=== PATIENT | male | born 1970 | race African-American/Black ===

== ENCOUNTER 2017-05-15 15:21 | Inpatient (IN) | payer OTHER ==
[2017-05-14 14:21] VITALS: BMI 48.0
[2017-05-15] MEDS ORDERED: BUPIVACAINE HCL/PF 0.5% (5MG/ML) 10 ML VIAL ONE (15:31)
[2017-05-15] MEDS ORDERED: DEXAMETHASONE SOD PHOSPHATE/PF 10 MG/ML SDV ONE (15:39)
[2017-05-15] MEDS ORDERED: BUPIVACAINE HCL/PF 0.25% (2.5MG/ML) 10 ML VIAL ONE (15:40)
[2017-05-15] MEDS ORDERED: MIDAZOLAM HCL 2 MG/2 ML SINGLE DOSE VIAL ONE ×3 (15:41→16:15)
[2017-05-15] MEDS ORDERED: PROPOFOL 20 ML ONE ×2 (16:15→17:46)
[2017-05-15] MEDS ORDERED: fentaNYL CITRATE 250 MCG/5 ML VIAL ONE (16:15)
[2017-05-15] MEDS ORDERED: ePHEDrine SULFATE 50 MG/1 ML AMPULE ONE (16:15)
[2017-05-15] MEDS ORDERED: ACETAMINOPHEN INJECTION 100 ML IVPB ONE (16:18)
[2017-05-15] MEDS ORDERED: DESFLURANE GAS 240 ML BOTTLE IH ONE (16:21)
[2017-05-15] MEDS ORDERED: GLYCOPYRROLATE 0.2 MG/1 ML VIAL ONE ×2 (16:43→19:48)
[2017-05-15] MEDS ORDERED: ceFAZolin SODIUM 1 GM VIAL IVPB ONE (18:00)
[2017-05-15] MEDS ORDERED: BUPIVACAINE HCL/PF 0.5% (5MG/ML) 10 ML VIAL IJ ONE ×2 (18:39→19:34)
[2017-05-15] MEDS ORDERED: NEOSTIGMINE METHYLSULFATE 0.5 MG/ML - 10 ML MDV ONE (19:33)
[2017-05-15] MEDS ORDERED: HYDROmorphone HCL CARPU-JECT 1 MG/1 ML DISP.SYRIN IVPB PRN (19:50)
[2017-05-15] MEDS ORDERED: ONDANSETRON 4 MG/2 ML VIAL IVPUSH PRN ×2 (19:50→20:24)
--- NOTE | 2017-05-15 19:59 | OP ---
Operative Note - Note: Operative Date: 05/15/17 Pre-Operative Diagnosis: Morbid Obesity. Diabetes Mellitus. Hypertension Operation: Laparoscopic Vertical Sleeve Gastrectomy. Wedge Biopsy of Left Lobe of Liver. Diagnostic Laparoscopy Findings: Greater curve sleeve gastrectomy performed with #[address] Wedge biopsy performed on enlarged left lobe of liver. Post-Operative Diagnosis: Same as Pre-op (Hepatomegaly) Surgeon: Ced Finney Brand Representative: Mike Underwood Anesthesia: General Specimens Removed: Greater curve of stomach. Wedge biopsy of left charlotte of liver Estimated Blood Loss (mls): 50 Operative Report Dictated: Yes
[2017-05-15] MEDS ORDERED: SODIUM CHLORIDE 1,000 ML IV SCH (20:00)
[2017-05-15] MEDS ORDERED: PROMETHAZINE HCL 25 MG/1 ML VIAL IVPUSH PRN (20:24)
[2017-05-15] MEDS ORDERED: LACTATED RINGERS SOLUTION 1,000 ML IV SCH (20:30)
[2017-05-15] MEDS ORDERED: MEPERIDINE HCL CARPU-JECT 25 MG/1 ML DISP.SYRIN ONE (20:32)
[2017-05-15] MEDS: METOCLOPRAMIDE HCL INJECTION 10 MG/2 ML VIAL IVPUSH SCH (21:00)
[2017-05-15] MEDS ORDERED: FAMOTIDINE 20 MG/50 ML IVPB 20 MG/50 ML MG IVPB ONE (21:01)
[2017-05-15] MEDS ORDERED: HYDROmorphone HCL CARPU-JECT 4 MG/1 ML DISP.SYRIN ONE (21:01)
[2017-05-15] MEDS ORDERED: ENOXAPARIN NA (PORCINE) 40 MG/0.4 ML DISP.SYRIN SQ ONE (21:01)
[2017-05-15] MEDS ORDERED: METOCLOPRAMIDE HCL INJECTION 10 MG/2 ML VIAL ONE (21:01)
[2017-05-15] MEDS: ENOXAPARIN NA (PORCINE) 40 MG/0.4 ML DISP.SYRIN SQ SCH (21:15)
[2017-05-15 21:19] LABS: HEMOGLOBIN 13.3 GM/dL (11.7-16.9); MCH 25.4 pg (25.7-33.7); MCHC 32.3 g/dl (32.0-35.9); MEAN CELL VOLUME 78.7 fl (80-96); MEAN PLT VOLUME 8.2 fl (7.5-11.1); PLATELET COUNT 257 K/MM3 (134-434); RBC 5.21 M/mm3 (4.00-5.60); RDW 17.2 % (11.9-15.9); WHITE BLOOD COUNT 16.8 K/mm3 (4.0-10.0)
[2017-05-15] MEDS ORDERED: FAMOTIDINE 20 MG PREMIXED IVPB IVPB ONE (21:20)
[2017-05-15 21:51] LABS: ALBUMIN 3.9 g/dl (3.4-5.0); ANION GAP 5 (8-16); BILIRUBIN,TOTAL 0.6 mg/dL (0.2-1.0); BLOOD UREA NITROGEN 18 mg/dL (7-18); CALCIUM 8.3 mg/dL (8.5-10.1); CHLORIDE 101 mmol/L (98-107); CO2 31 mmol/L (21-32); CREATININE 1.8 mg/dL (0.7-1.3); GLUCOSE,RANDOM 143 mg/dL (74-106); POTASSIUM 3.9 mmol/L (3.5-5.1); SGOT/AST 57 U/L (15-37); SODIUM 137 mmol/L (136-145); TOT PROT 7.3 g/dl (6.4-8.2)
[2017-05-15 21:53] LABS: ALK PHOS 81 U/L (45-117); SGPT/ALT 81 U/L (12-78)
[2017-05-15] MEDS: FAMOTIDINE 20 MG/50 ML IVPB 20 MG/50 ML MG IVPB SCH (22:43)
--- NOTE | 2017-05-15 23:20 | HP ---
DATE OF ADMISSION: 05/15/2017 CHIEF COMPLAINT: Morbid obesity. HISTORY OF PRESENT ILLNESS: Mr. Moore is a 47-year-old gentleman with a history of morbid obesity for many years despite multiple attempts at dietary weight loss. Because of his obesity, he has significant history of hypertension and diabetes, and is admitted for elective laparoscopic sleeve gastrectomy surgery. PAST MEDICAL HISTORY: Significant for diabetes mellitus and hypertension. MEDICATION: Include amlodipine, Vasotec, hydrochlorothiazide, and metformin. REVIEW OF SYSTEMS: Neurologic: Within normal limits. Cardiovascular: Within normal limits. Respiratory: Within normal limits. Gastrointestinal: Within normal limits. Musculoskeletal: Within normal limits. PHYSICAL EXAMINATION: General: Overweight gentleman, awake and alert, in no acute distress. HEENT: No masses noted. Lungs: Clear bilaterally. Heart: Regular sinus rhythm. Abdomen: Very obese, soft, nontender on palpation. Extremities: No swelling noted of lower extremities. IMPRESSION: Morbid obesity. PLAN: Operating room for laparoscopic vertical sleeve gastrectomy. Sudeep [id number]
[2017-05-16] MEDS: METOCLOPRAMIDE HCL INJECTION 10 MG/2 ML VIAL IVPUSH SCH ×3 (02:22→14:52)
[2017-05-16] MEDS: HYDROmorphone HCL CARPU-JECT 4 MG/1 ML DISP.SYRIN IVPB PRN ×2 (06:33→14:08)
--- NOTE | 2017-05-16 07:39 | OP ---
DATE OF OPERATION: 05/15/2017 PREOPERATIVE DIAGNOSIS: 1. Morbid obesity. 2. Diabetes mellitus. 3. Hypertension. POSTOPERATIVE DIAGNOSIS: 1. Morbid obesity. 2. Diabetes mellitus. 3. Hypertension. 4. Hepatomegaly. PROCEDURE PERFORMED: 1. Laparoscopic vertical sleeve gastrectomy. 2. Wedge biopsy of the left lobe of the liver. 3. Diagnostic laparoscopy. OPERATING SURGEON: Hal Finney MD SAUSAGE WRAPPER: Mike Underwood MD ANESTHESIA: General. OPERATIVE PROCEDURE: The patient was brought into the operating room, placed on the OR table in supine position. All precautions were taken initially including padding for the back and the feet, and Venodyne boots were placed on both lower extremities. At that point, the abdomen was prepped and draped in the usual manner. A Veress needle was placed in the left upper quadrant, and a pneumoperitoneum was established. A No. 12 bladeless trocar was placed in the left upper quadrant. Through that trocar, a laparoscopic camera was placed. Under direct vision, a No. 15 bladeless trocar was placed in the midline in a supraumbilical position, and then, a No. 5 bladeless trocar in the right upper quadrant and a No. 5 bladeless trocar below the left costal margin. A Ariana Liver Retractor was then placed in the epigastrium to retract the left lobe of the liver. The patients left lobe was noted to be extremely enlarged and very heavy. It was decided that a biopsy of the liver would be performed. At that point, the LigaSure device was used to cut out a small portion on the undersurface of the left lobe of the liver. This piece of the liver was then removed and sent off the field to Pathology as a specimen. The parenchyma bleeding was controlled by the LigaSure completely, and no further hemostasis was necessary. At this point, Anesthesia placed the patient in 20-degree reverse Trendelenburg position. The pylorus was noted on the distal stomach, and from that point, 6 cm were measured proximally. Here, the operating surgeon lifted the stomach towards the anterior abdominal wall as the assistant producer surgeon retracted the gastrocolic ligament inferiorly. The LigaSure device was used to dissect the gastrocolic ligament and then the short gastric vessels off the greater curve of the stomach. This continued until the final short gastric vessel between the superior pole, spleen, and proximal fundus was divided. At this point, Anesthesia advanced the bougie, which was a No. [address] down to the distal antrum. With the bougie held along the lesser curve, a series of salomón was performed, the first two being black salomón, 6 cm in length along the bougie. This was followed by a series of purple-load salomón, also 6 cm in length along the bougie, until the final staple was applied in the left upper quadrant, and the greater curve was now completely detached from the lesser curve. It should be noted that prior to firing these salomón, both the anterior and posterior min were checked, that they were equal in the area of the esophagogastric junction, approximately 1 to 1.5 cm serosa remained on the anterior and posterior surface. At this point, the assistant producer surgeon, Dr. Underwood, stepped out of the operative field and performed an upper endoscopy. The details will be described in his procedure note, but essentially, it showed that there was no obstruction all the way down to the pylorus and no leaks were noted from the staple line. At this point, the resected greater curve was removed with a No. 15 trocar size and sent off the field as specimen to Pathology. Under direct vision, all trocars removed and the pneumoperitoneum was released. The No. 15 trocar site was closed with Endo Close device to prevent internal hernia event bleeding. All trocar sites then received 0.25% Marcaine, were closed with 4-0 Biosyn in subcuticular fashion. The No. 15 trocar site was closed with 3-0 Vicryl in subcutaneous fashion followed by 4-0 Biosyn in subcuticular fashion. Dressings were applied. Patient awoke from anesthesia and transferred out of the operating room to the recovery room in stable condition. ANESTHESIA: General. SURGEON: Hal Finney MD SAUSAGE WRAPPER: Mike Underwood MD EXPECTED BLOOD LOSS: 50 mL. Patient transferred to the recovery room in stable condition. HAL FINNEY M.D. [id number]
[2017-05-16 08:19] LABS: HEMATOCRIT 40.2 % (35.4-49); HEMOGLOBIN 12.8 GM/dL (11.7-16.9); MCH 24.8 pg (25.7-33.7); MCHC 31.8 g/dl (32.0-35.9); MEAN PLT VOLUME 8.3 fl (7.5-11.1); PLATELET COUNT 238 K/MM3 (134-434); RBC 5.16 M/mm3 (4.00-5.60); RDW 16.9 % (11.9-15.9); WHITE BLOOD COUNT 14.1 K/mm3 (4.0-10.0)
[2017-05-16 08:30] LABS: ALBUMIN 3.7 g/dl (3.4-5.0); ANION GAP 11 (8-16); BLOOD UREA NITROGEN 13 mg/dL (7-18); CALCIUM 8.8 mg/dL (8.5-10.1); CHLORIDE 101 mmol/L (98-107); CO2 27 mmol/L (21-32); CREATININE 1.2 mg/dL (0.7-1.3); GLUCOSE,RANDOM 127 mg/dL (74-106); POTASSIUM 4.1 mmol/L (3.5-5.1); SGOT/AST 79 U/L (15-37); SGPT/ALT 102 U/L (12-78); SODIUM 139 mmol/L (136-145)
[2017-05-16 08:32] LABS: ALK PHOS 79 U/L (45-117); BILIRUBIN,TOTAL 0.7 mg/dL (0.2-1.0); TOT PROT 7.6 g/dl (6.4-8.2)
[2017-05-16] MEDS: FAMOTIDINE 20 MG/50 ML IVPB 20 MG/50 ML MG IVPB SCH ×2 (09:31→09:32)
[2017-05-16] MEDS: ENOXAPARIN NA (PORCINE) 40 MG/0.4 ML DISP.SYRIN SQ SCH (09:32)
--- NOTE | 2017-05-16 09:51 | OP ---
Operative Note - Note: Operative Date: 05/16/17 Pre-Operative Diagnosis: Rule out leak/obstruction s/p vertical sleeve gastrectomy Operation: EGD/upper endoscopy Surgeon: Mike Underwood Anesthesia: General Specimens Removed: None Estimated Blood Loss (mls): 0 Operative Report Dictated: Yes
[2017-05-16] MEDS ORDERED: amLODIPine BESYLATE 10 MG TABLET (FP) PO SCH (10:00)
[2017-05-16] MEDS ORDERED: ENALAPRIL MALEATE 10 MG TABLET (FP) PO SCH (10:00)
--- NOTE | 2017-05-16 11:29 | OP ---
DATE OF OPERATION: 05/15/2017 SURGEON: Vicky Underwood MD PREOPERATIVE DIAGNOSIS: Rule out leak/obstruction after vertical sleeve gastrectomy by Dr. Ced Finney. POSTOPERATIVE DIAGNOSIS: No leak or obstruction. SPECIMEN: None. ESTIMATED BLOOD LOSS: None. ANESTHESIA: GET. REASON FOR PROCEDURE: This is a 47-year-old gentleman who is undergoing a laparoscopic vertical sleeve gastrectomy by Dr. Ced Finney. An upper endoscopy/EGD was requested to rule out leak or obstruction. The endoscope was inserted into the patient's mouth. Esophagus, GE junction, gastric pouch, and staple line were inspected. Hemostasis was noted. No leak or obstruction was noted. The stomach was suctioned and the endoscope fully removed. The remainder of the procedure was continued. VICKY UNDERWOOD M.D. [id number]
--- NOTE | 2017-05-16 14:02 | PN ---
Progress Note (short form) - Note Progress Note: Anesthesiology Post-op 47 y.o. male POD#1 s/p laparoscopic gastric sleeve resection under GA. Pt. c/o 7/10 pain this afternoon; he states that he felt okay for most of the day until now. He is receiving IV Dilaudid PRN with good relief. He does c/o nausea which is relieved with Zofran. Otherwise, VSS, no other complaints. Stable post-operative course. Continue management per primary team.
[2017-05-16] MEDS ORDERED: ACETAMINOPHEN 325 MG TABLET (FP) PO PRN (14:27)
[2017-05-16] MEDS ORDERED: oxyCODONE HCL 5 MG TABLET PO PRN (14:27)
[2017-05-16] MEDS ORDERED: SODIUM CHLORIDE 1,000 ML IV SCH (14:30)
--- NOTE | 2017-05-16 14:33 | PN ---
Progress Note (short form) - Note Progress Note: POD#1 Afebrile; VSS Pt doing well No N/V P/E- Abd- all incisions clean, dry Ext- no swelling or edema noted WBC-14.1 (decreased from 16.8) H/H-12.8/40.2 UGI- no leak, no obstruction P- Begin PO clear liquids- 2 oz po tid Encourage OOB, incentive spirometer Cont DVT prophylaxis
[2017-05-16 14:55] VITALS: BP 141/85; PULSE 77; TEMP 99.4
--- NOTE | 2017-05-19 17:48 | PATH ---
Surgical Pathology Report Patient Name: ANDER FRANK [facility]. Rec. #: [id number] /Age/Gender: 1970 (Age: 47) / M Account: [id number] Location: 4 W TELEMETRY U Taken: 05/15/2017 Received: 05/16/2017 Reported: 05/19/2017 Physicians: Ced Finney M.D. Specimen(s) Received A: GREATER CURVATURE STOMACH B: LIVER BIOPSY Clinical History Morbid obesity Final Diagnosis A. STOMACH, GREATER CURVATURE, LAPAROSCOPIC VERTICAL SLEEVE GASTRECTOMY: PORTION OF STOMACH WITH MILD CHRONIC GASTRITIS. IMMUNOHISTOCHEMICAL STAIN FOR H. PYLORI IS NEGATIVE. B. LIVER, BIOPSY: LIVER PARENCHYMA WITH MILD PATCHY STEATOSIS (< 15%). NO INCREASE IN IRON AND FIBROSIS ON PERFORMED SPECIAL STAINS (IRON AND TRICHROME). Electronically Signed Kari Pretty M.D. Gross Description A. Received in formalin, labeled "greater curvature of stomach," is a 146 gram, 17.0 x 4.0 x 2.8 cm. portion of stomach with a stapled margin of resection. The serosa is prescott-bernard with minimal attached fat. The mucosa is prescott-pink with normal folds. No mucosal masses are identified. Director Of Search Engine Marketing sections are submitted in one cassette. B. Received in formalin labeled "liver biopsy," is a 3.0 x 1.7 x 1.0 cm prescott, irregular portion of soft tissue, consistent with a liver biopsy. A inbound sales representative section is submitted in one cassette. 05/16/2017 saudi05/16/2017
== END 2017-05-16 15:27 | disposition home or self-care (01) | DRG 621 ==
LOC: JSAMEDAYSX 15:21 → J4W 05-16 00:46
PROVIDERS: ADMIT Surgery; ATTEND Surgery
PROC: 0DB64Z3 Excision of Stomach, Percutaneous Endoscopic Approach, Vertical (ICD-10-PCS; principal; 2017-05-15 17:45)
PROC: 0FB24ZX Excision of Left Lobe Liver, Percutaneous Endoscopic Approach, Diagnostic (ICD-10-PCS; 2017-05-15 17:45)
PROC: 0DJ08ZZ Inspection of Upper Intestinal Tract, Via Natural or Artificial Opening Endoscopic (ICD-10-PCS; 2017-05-15 17:45)
DX: E66.01 Morbid (severe) obesity due to excess calories (principal); Z68.42 Body mass index [BMI] 45.0-49.9, adult; I10 Essential (primary) hypertension; E11.9 Type 2 diabetes mellitus without complications; R16.0 Hepatomegaly, not elsewhere classified
CPT/HCPCS: 36415; 74241-TC-FY; 80053; 82962; 85027; 88307-TC; 94010

== ENCOUNTER 2017-06-19 13:30 | Inpatient (IN) | payer OTHER ==
[2017-06-19 13:38] VITALS: BMI 42.0
[2017-06-19] MEDS ORDERED: SODIUM CHLORIDE 1,000 ML IV STA (13:50)
--- NOTE | 2017-06-19 13:51 | PDOC ---
History of Present Illness <Bebo Lawson - Last Filed: 06/19/17 15:23> - History of Present Illness Initial Comments: 06/19/17 13:47 47 M with h/o HTN, recent gastric bypass surgery 5 weeks ago, presenting to ED with elevated BUN/Cr on outpt labs. Pt states that since his surgery 5 weeks ago , he has been trying to advance his diet. By week 4, he was able to tolerating small amounts of solid food. However, over the past week, he has found it difficult to even tolerate fluids. He reports dry heaving and having severe nausea with any PO intake. Pt denies F/C. Denies CP/SOB. Denies leg swelling. Pt states he still makes urine, last urinated this AM. Pt is on enalapril, amlodipine, and HCTZ for his HTN. He reports self-DC'ing all 3 of these meds 2 days ago as he started to get lightheaded when he took them. <Michael Nguyễn - Last Filed: 06/19/17 15:46> - General Chief Complaint: Revisit, Lab Variance Stated Complaint: LAB VARIANCE, NAUSEA, FEELS DEHYDRATED Time Seen by Provider: 06/19/17 13:33 Past History <Bebo Lawson - Last Filed: 06/19/17 15:23> - Past Medical History Anemia: No Asthma: No Cancer: No Cardiac Disorders: No CVA: No COPD: No Dementia: No Diabetes: No GI Disorders: No Disorders: No HTN: Yes Hypercholesterolemia: No Liver Disease: No Seizures: No Thyroid Disease: No - Surgical History Abdominal Surgery: Yes (GASTRIC SLEEVE) Orthopedic Surgery: Yes (fx left leg) - Suicide/Smoking/Psychosocial Hx Smoking History: Former smoker Have you smoked in the past 12 months: No Information on smoking cessation initiated: No Hx Alcohol Use: No Drug/Substance Use Hx: No Substance Use Type: Marijuana Hx Substance Use Treatment: No <Michael Nguyễn - Last Filed: 06/19/17 15:46> - Past Medical History Allergies/Adverse Reactions: Allergies Allergy/AdvReac Type Severity Reaction Status Date / Time No Known Allergies Allergy Verified 06/19/17 13:32 Home Medications: Ambulatory Orders Amlodipine Besylate 10 mg PO DAILY 05/14/17 Enalapril Maleate [Vasotec] 20 mg PO DAILY 05/14/17 Hydrochlorothiazide [Hctz -] 25 mg PO DAILY 05/14/17 Famotidine [Pepcid -] 20 mg PO BID #60 tablet 05/16/17 Metformin HCl mg PO DAILY 06/19/17 Review of Systems - Review of Systems Comments:: 06/19/17 13:49 "GENERAL/CONSTITUTIONAL: No fever or chills. No weakness. HEAD, EYES, EARS, NOSE AND THROAT: No change in vision. No ear pain or discharge. No sore throat. CARDIOVASCULAR: No chest pain or shortness of breath. RESPIRATORY: No cough, wheezing, or hemoptysis. GASTROINTESTINAL: No nausea, vomiting, diarrhea or constipation. GENITOURINARY: No dysuria, frequency, or change in urination. MUSCULOSKELETAL: No joint or muscle swelling or pain. No neck or back pain. SKIN: No rash NEUROLOGIC: No headache, vertigo, loss of consciousness, or change in strength/ sensation. ENDOCRINE: No increased thirst. No abnormal weight change. HEMATOLOGIC/LYMPHATIC: No anemia, easy bleeding, or history of blood clots. ALLERGIC/IMMUNOLOGIC: No hives or skin allergy. " <Michael Nguyễn - Last Filed: 06/19/17 15:46> *Physical Exam - Vital Signs Last Vital Signs Temp Pulse Resp BP Pulse Ox 98.8 F 70 16 101/71 98 06/19/17 13:30 06/19/17 15:03 06/19/17 15:03 06/19/17 15:03 06/19/17 15:03 <Bebo Lawson - Last Filed: 06/19/17 15:23> - Vital Signs Last Vital Signs Temp Pulse Resp BP Pulse Ox 98.8 F 75 18 93/58 99 06/19/17 13:30 06/19/17 13:30 06/19/17 13:30 06/19/17 13:30 06/19/17 13:30 - Physical Exam Comments: 06/19/17 13:49 "GENERAL: Awake, alert, and fully oriented, in no acute distress HEAD: No signs of trauma EYES: PERRLA, EOMI, sclera anicteric, conjunctiva clear ENT: Auricles normal inspection, hearing grossly normal, nares patent, oropharynx clear without exudates. Moist mucosa NECK: Nontender, no stepoffs, Normal ROM, supple, no lymphadenopathy, JVD, or masses LUNGS: Breath sounds equal, clear to auscultation bilaterally. No wheezes, and no crackles HEART: Regular rate and rhythm, normal S1 and S2, no murmurs, rubs or gallops ABDOMEN: Soft, nontender, normoactive bowel sounds. No guarding, no rebound. No masses EXTREMITIES: Normal range of motion, no edema. No clubbing or cyanosis. No cords, erythema, or tenderness NEUROLOGICAL: Cranial nerves II through XII intact. 5/5 strength and sensation in all extremities, Normal speech, normal gait, normal cerebellar function SKIN: Warm, Dry, normal turgor, no rashes or lesions noted. " <OuMichael - Last Filed: 06/19/17 15:46> Heart Score/ECG Review - ECG Impressions Comment:: 06/19/17 13:59 NSR, sub-mm ST elevations in V1-V6, I, aVL, TW inversions in III and aVF, sub- mm ST depression in aVR <Ou,Michael - Last Filed: 06/19/17 15:46> ED Treatment Course - LABORATORY CBC & Chemistry Diagram: 06/19/17 14:00 06/19/17 14:00 - ADDITIONAL ORDERS Additional order review: Laboratory Results 06/19/17 06/19/17 14:00 14:00 Sodium 132 L Potassium 4.7 Chloride 95 L Carbon Dioxide 25 Anion Gap 12 BUN 74 H Creatinine 6.9 H Creat Clearance w eGFR 8.66 Random Glucose 110 H Calcium 9.4 Phosphorus 4.3 Magnesium 2.6 H Total Bilirubin 1.0 AST 21 ALT 26 Alkaline Phosphatase 46 Total Protein 7.5 Albumin 4.6 06/19/17 14:00 RBC 5.16 MCV 78.2 L MCHC 33.7 RDW 16.2 H MPV 9.4 Neutrophils % 61.8 Lymphocytes % 25.0 Monocytes % 10.3 H Eosinophils % 1.4 Basophils % 1.5 - Medications Given in the ED: ED Medications Discontinued Medications Generic Name Dose Route Start Last Admin Trade Name Freq PRN Reason Stop Dose Admin Sodium Chloride 1,000 mls @ 1,000 mls/hr 06/19/17 13:50 06/19/17 14:08 Normal Saline - IV 06/19/17 14:49 1,000 mls/hr ASDIR STA Administration - Consult/PCP Time Called: 15:10 (Case discussed with Dr. Beasley) - Additional Consults Time Called: 15:15 Consult/PCP: Placed call to Dr. Alejandro of Nephrology at [phone] Reason/Comments: Awaiting call back from covering physician Dr. Biggs <Bebo Lawson - Last Filed: 06/19/17 15:23> - LABORATORY CBC & Chemistry Diagram: 06/19/17 14:00 06/19/17 14:00 - RADIOLOGY Radiology Studies Ordered: Category Date Time Status KIDNEY / RENAL US [US] Stat Ultrasound 06/19/17 13:46 Ordered <Michael Nguyễn - Last Filed: 06/19/17 15:46> Medical Decision Making - Medical Decision Making 06/19/17 13:49 47 M with elevated BUN/Cr on outpt labs. Possibly 2/2 severe dehydration from poor PO intake after recent gastric bypass surgery. Also consider medication- induced, as pt is on 3 anti-HTNs, including enalapril and HCTZ. - Labs, UA - Renal US - IVF 06/19/17 14:01 EKG obtained, showing sub-mm ST elevations in V1-V6, I, aVL, possibly suggesting pericarditis. Given pt's new renal failure, could be uremic pericarditis. However, pt without any chest pain. 06/19/17 15:11 Labs today show Cr 6.9. K is wnl Pt started on IVF, given 1L NS bolus, will continue maintenance fluids 06/19/17 15:[address] Biggs, who does not believe pt will need emergent HD. Pt admitted to Dr. Beasley. <Michael Nguyễn - Last Filed: 06/19/17 15:46> *DC/Admit/Observation/Transfer - Attestations Scribe Attestion: Documentation prepared by Bebo Lawson, acting as medical program specialist for Michael Nguyễn MD 06/19/17 15:19 <Bebo Lawson - Last Filed: 06/19/17 15:23> - Discharge Dispostion Admit: Yes - Attestations Physician Attestion: 06/19/17 15:46 I, Dr. Michael Nguyễn MD, attest that this document has been prepared under my direction and personally reviewed by me in its entirety. I further attest, that it accurately reflects all work, treatment, procedures and medical decision -making performed by me. <Michael Nguyễn - Last Filed: 06/19/17 15:46> Diagnosis at time of Disposition: ARF (acute renal failure) - Discharge Dispostion Condition at time of disposition: Stable - Referrals Referrals: Demetri Beasley MD [Primary Care Provider] - - Patient Instructions - Post Discharge Activity
[2017-06-19 14:10] LABS: BASO % 1.5 % (0-2.0); EOS % 1.4 % (0-4.5); HEMATOCRIT 40.4 % (35.4-49); HEMOGLOBIN 13.6 GM/dl (11.7-16.9); MCH 26.4 pg (25.7-33.7); MCHC 33.7 g/dl (32.0-35.9); MEAN CELL VOLUME 78.2 fl (80-96); MEAN PLT VOLUME 9.4 fl (7.5-11.1); MONO % 10.3 % (3.8-10.2); NEUT % 61.8 % (42.8-82.8); PLATELET COUNT 160 K/MM3 (134-434); RBC 5.16 M/mm3 (4.00-5.60); RDW 16.2 % (11.9-15.9); WHITE BLOOD COUNT 7.1 K/mm3 (4.0-10.8)
[2017-06-19 14:38] LABS: ALBUMIN 4.6 g/dl (3.5-5.0); ALK PHOS 46 U/L (32-92); ANION GAP 12 (8-16); BLOOD UREA NITROGEN 74 mg/dl (7-18); CALCIUM 9.4 mg/dl (8.4-10.2); CHLORIDE 95 mmol/L (98-107); CO2 25 mmol/L (22-28); CREATININE 6.9 mg/dl (0.6-1.3); GLUCOSE,RANDOM 110 mg/dl (74-106); PHOSPHOROUS 4.3 mg/dl (2.5-4.6); POTASSIUM 4.7 mmol/L (3.5-5.1); SGOT/AST 21 U/L (10-42); SGPT/ALT 26 U/L (10-40); SODIUM 132 mmol/L (136-145); TOT PROT 7.5 g/dl (6.4-8.3)
[2017-06-19 16:22] LABS: PH,URINE 5.5 (4.5-8); URINE APPEARANCE Clear; URINE BILIRUBIN 1+ (NEGATIVE); URINE GLUCOSE (UA) Negative (NEGATIVE); URINE KETONE 1+ (NEGATIVE); URINE LEUK ESTERASE Negative (NEGATIVE); URINE NITRITE Negative (NEGATIVE); URINE PROTEIN Trace (NEGATIVE); URINE UROBILINOGEN 0.2 (0.2-1.0)
[2017-06-19 16:26] LABS: URINE BLOOD Trace-intact (NEGATIVE); URINE COLOR YELLOW
[2017-06-19 16:54] LABS: URINE WBC 0-3 (0-2)
[2017-06-19 16:55] LABS: EPI CELLS 0-3 /HPF; URINE HYALINE CAST 0-2 /lpf
[2017-06-19] MEDS: SODIUM CHLORIDE 1,000 ML IV SCH (17:00)
[2017-06-19] MEDS ORDERED: RANITIDINE HCL 150 MG TABLET (FP) PO SCH (17:15)
[2017-06-19] MEDS ORDERED: RANITIDINE HCL 150 MG TABLET (FP) ONE (17:20)
--- NOTE | 2017-06-19 18:02 | CONSULT ---
Consult - text type - Consultation Consultation Note: Renal Consult for MARIA GUADALUPE This is a 47 year old gentleman with PMhx of Hypertension, Obesity s/p gastric sleeve who presented with N/V and found to have MARIA GUADALUPE. Pt reports that intially after the procedure his diet was impoving as he was instructed but 2 weeks ago it started to get worse and he was not able to keep anything down. Pt denies any NSAID use, contrast exposure, abx use. He was on NURIA/Diuretic up until this past Friday. No flank pain, hematuria, sob, chest pain. PMHx: as above Allergies: NKDA Family Hx: NC Social hx: No T/A/D ROS: as per HPI Home Medications Medication Instructions Recorded Amlodipine Besylate 10 mg PO DAILY 05/14/17 Enalapril Maleate [Vasotec] 20 mg PO DAILY 05/14/17 Hydrochlorothiazide [Hctz -] 25 mg PO DAILY 05/14/17 Famotidine [Pepcid -] 20 mg PO BID #60 tablet 05/16/17 Metformin HCl mg PO DAILY 06/19/17 Vital Signs Temperature 98.8 F 06/19/17 13:30 Pulse Rate 70 06/19/17 15:03 Respiratory Rate 16 06/19/17 15:03 Blood Pressure 101/71 06/19/17 15:03 O2 Sat by Pulse Oximetry (%) 98 06/19/17 15:03 Intake & Output 06/16/17 06/17/17 06/18/17 06/19/17 23:59 23:59 23:59 23:59 Intake Total 1125 Output Total 400 Balance 725 Weight 132.903 kg NAD, awake and alert Dry MM, NO JVD, neck supple RRR, no M/R CTA No LE edema CBC, BMP 06/19/17 14:00 06/19/17 14:00 Current Medications Heparin Sodium (Porcine) (Heparin -) 5,000 unit SQ BID EVANS Sodium Chloride (Normal Saline -) 1,000 mls @ 125 mls/hr IV ASDIR [facility] Last Admin: 06/19/17 17:00 Dose: 125 mls/hr Insulin Aspart (Novolog Vial Sliding Scale -) 1 vial SQ ACHS [facility] PRN Reason: Protocol Ranitidine HCl (Zantac -) 150 mg PO BID [facility] Last Admin: 06/19/17 17:30 Dose: 150 mg 47 year old gentleman with PMhx of Hypertension, Obesity s/p gastric by-pass who presented with N/V and found to have MARIA GUADALUPE. #Acute Kidney Injury likely normotensive ATN in setting of ACEi vs. pre-renal injury from overt volume depletion #Nausea/Vomiting s/p Gastric Bypass #Hx of Hypertension now with hypotension #Hyponatremia Continue isotonic saline at 125cc per hour US of kidney showed no obsruction check FeNa, FeUrea, UPCR trend BUN/cr daily dose all meds for CrCl less then 15 hold NURIA/Diuretics/CCB for now surgery follow up Thank you Will follow Rocco Biggs DO
[2017-06-19 18:17] LABS: MAGNESIUM 2.5 mg/dL (1.8-2.4)
[2017-06-19] MEDS: HEPARIN NA (PORCINE) 5,000 UNITS/ML 1ML VIAL SQ SCH (22:46)
[2017-06-19] MEDS: INSULIN SLIDING SCALE (NOVOLOG) 1 VIAL SQ SCH (23:45)
[2017-06-20] MEDS: INSULIN SLIDING SCALE (NOVOLOG) 1 VIAL SQ SCH ×4 (06:36→21:59)
--- NOTE | 2017-06-20 08:55 | HP ---
Admitting History and Physical - Admission History of Present Illness: 47 year old gentleman with PMhx of Hypertension, Obesity s/p gastric sleeve who presented with N/V and found to have MARIA GUADALUPE. Pt reports that intially after the procedure his diet was improving as he was instructed but 2 weeks ago it started to get worse and he was not able to keep anything down. Pt denies any NSAID use, contrast exposure, abx use. He was on NURIA/Diuretic up until this past Friday. No flank pain, hematuria, sob, chest pain. pt states he drank around one cup of fluids all week - Past Medical History Cardiovascular: Yes: HTN, Hyperlipdemia Heme/Onc: Yes: Anemia Endocrine: Yes: Other (Obesity) - Smoking History Smoking history: Former smoker Have you smoked in the past 12 months: No - Alcohol/Substance Use Hx Alcohol Use: No Home Medications - Allergies Allergies/Adverse Reactions: Allergies Allergy/AdvReac Type Severity Reaction Status Date / Time No Known Allergies Allergy Verified 06/19/17 13:32 - Home Medications Home Medications: Ambulatory Orders Amlodipine Besylate 10 mg PO DAILY 05/14/17 Enalapril Maleate [Vasotec] 20 mg PO DAILY 05/14/17 Hydrochlorothiazide [Hctz -] 25 mg PO DAILY 05/14/17 Famotidine [Pepcid -] 20 mg PO BID #60 tablet 05/16/17 Metformin HCl mg PO DAILY 06/19/17 Review of Systems - Review of Systems Cardiovascular: reports: No Symptoms Respiratory: reports: No Symptoms Gastrointestinal: reports: Nausea. denies: Abdominal Pain Genitourinary: reports: No Symptoms Neurological: reports: Weakness Physical Examination Vital Signs: Vital Signs Temperature 98.5 F 06/20/17 05:55 Pulse Rate 87 06/20/17 05:55 Respiratory Rate 20 06/20/17 08:37 Blood Pressure 104/45 06/20/17 05:55 O2 Sat by Pulse Oximetry (%) 95 06/20/17 08:37 Cardiovascular: Yes: Regular Rate and Rhythm Respiratory: Yes: Regular, CTA Bilaterally Gastrointestinal: Yes: Normal Bowel Sounds, Soft. No: Tenderness Edema: No Labs: CBC, BMP 06/19/17 14:00 Problem List - Problems (1) Gastric bypass status for obesity Assessment/Plan: surgical follow up ugi series Code(s): Z98.84 - BARIATRIC SURGERY STATUS (2) ARF (acute renal failure) Assessment/Plan: maybe due to volume depletion poor oral intake ivf follow labs Code(s): N17.9 - ACUTE KIDNEY FAILURE, UNSPECIFIED (3) Nausea Assessment/Plan: ppi await gi series Code(s): R11.0 - NAUSEA (4) HTN (hypertension) Assessment/Plan: hold meds Code(s): I10 - ESSENTIAL (PRIMARY) HYPERTENSION
[2017-06-20 09:15] LABS: ALK PHOS 41 U/L (32-92); ANION GAP 8 (8-16); BILIRUBIN,TOTAL 1.1 mg/dl (0.2-1.0); BLOOD UREA NITROGEN 58 mg/dl (7-18); CALCIUM 9.1 mg/dl (8.4-10.2); CHLORIDE 102 mmol/L (98-107); CO2 26 mmol/L (22-28); CREATININE 4.1 mg/dl (0.6-1.3); GLUCOSE,RANDOM 95 mg/dl (74-106); MAGNESIUM 2.3 mg/dL (1.8-2.4); PHOSPHOROUS 4.2 mg/dl (2.5-4.6); POTASSIUM 4.6 mmol/L (3.5-5.1); SGOT/AST 20 U/L (10-42); SGPT/ALT 23 U/L (10-40); SODIUM 136 mmol/L (136-145); TOT PROT 6.8 g/dl (6.4-8.3)
[2017-06-20 09:20] LABS: BASO % 0.6 % (0-2.0); EOS % 2.1 % (0-4.5); HEMATOCRIT 36.8 % (35.4-49); HEMOGLOBIN 12.5 GM/dl (11.7-16.9); LYMPH % 33.9 % (8-40); MCH 26.5 pg (25.7-33.7); MCHC 33.9 g/dl (32.0-35.9); MEAN CELL VOLUME 78.2 fl (80-96); MEAN PLT VOLUME 9.4 fl (7.5-11.1); MONO % 9.4 % (3.8-10.2); PLATELET COUNT 144 K/MM3 (134-434); RDW 16.5 % (11.9-15.9); WHITE BLOOD COUNT 6.2 K/mm3 (4.0-10.8)
[2017-06-20] MEDS: HEPARIN NA (PORCINE) 5,000 UNITS/ML 1ML VIAL SQ SCH ×3 (09:58→21:59)
[2017-06-20] MEDS: PANTOPRAZOLE SODIUM 40 MG VIAL IVPUSH SCH ×2 (09:58→22:00)
[2017-06-20] MEDS ORDERED: RANITIDINE HCL 150 MG TABLET (FP) PO SCH (10:00)
--- NOTE | 2017-06-20 10:01 | EKG ---
Test Reason : Blood Pressure : / mmHG Vent. Rate : 072 BPM Atrial Rate : 072 BPM P-R Int : 166 ms QRS Dur : 090 ms QT Int : 338 ms P-R-T Axes : 048 -02 -20 degrees QTc Int : 370 ms NORMAL SINUS RHYTHM ST ELEVATION, CONSIDER EARLY REPOLARIZATION, PERICARDITIS, OR INJURY ABNORMAL ECG Confirmed by MARCELLA JAUREGUI MD ([id number]) on 06/20/2017 10:01:37 AM Referred By: VINCE HERNÁNDEZ Confirmed By:MARCELLA JAUREGUI MD
--- NOTE | 2017-06-20 10:33 | PN ---
Progress Note (short form) - Note Progress Note: Renal follow up for MARIA GUADALUPE Pts seen and examined at the bedside awake and alert had some Nausea this am, able to drink water last night making urine no dizziness, lightheadedness Vital Signs Temperature 98.5 F 06/20/17 05:55 Pulse Rate 87 06/20/17 05:55 Respiratory Rate 20 06/20/17 08:37 Blood Pressure 104/45 06/20/17 05:55 O2 Sat by Pulse Oximetry (%) 95 06/20/17 08:37 Intake & Output 06/17/17 06/18/17 06/19/17 06/20/17 23:59 23:59 23:59 23:59 Intake Total 1725 Output Total 400 Balance 1325 Weight 132.903 kg NAD, awake and alert Dry MM, NO JVD, neck supple RRR, no M/R CTA No LE edema CBC, BMP 06/20/17 08:20 06/20/17 06:00 Current Medications Heparin Sodium (Porcine) (Heparin -) 5,000 unit SQ BID ON LICENSE OF [facility] Last Admin: 06/20/17 09:58 Dose: 5,000 unit Sodium Chloride (Normal Saline -) 1,000 mls @ 125 mls/hr IV ASDIR ON LICENSE OF [facility] Last Admin: 06/19/17 17:00 Dose: 125 mls/hr Insulin Aspart (Novolog Vial Sliding Scale -) 1 vial SQ ACHS ON LICENSE OF [facility] PRN Reason: Protocol Last Admin: 06/20/17 06:36 Dose: Not Given Pantoprazole Sodium (Protonix Iv) 40 mg IVPUSH BID ON LICENSE OF [facility] Last Admin: 06/20/17 09:58 Dose: 40 mg Ranitidine HCl (Zantac -) 150 mg PO BID ON LICENSE OF [facility] 47 year old gentleman with PMhx of Hypertension, Obesity s/p gastric by-pass who presented with N/V and found to have MARIA GUADALUPE. #Acute Kidney Injury likely normotensive ATN in setting of ACEi vs. pre-renal injury from overt volume depletion #Nausea/Vomiting s/p Gastric Bypass #Hx of Hypertension now with hypotension #Hyponatremia FeNa was 1.2% - indeterminate continue isotonic saline for now continue management of N/v as per primary/surgery hyponatremia now resolved trend BUN/Cr and electrolytes daily Dose all meds for CrCl less then 20 Rocco Biggs DO
[2017-06-20] MEDS ORDERED: ONDANSETRON 4 MG/2 ML VIAL IVPUSH PRN (11:41)
--- NOTE | 2017-06-20 17:25 | CONSULT ---
Consult - text type - Consultation Consultation Note: Asked to see this 47 yo gentleman 5 weeks S/P Sleeve Gastrectomy. Pt was doing well first 3 weeks after surgery, even tolerating ground turkey, gradually progressing diet as instructed. He states last 2 weeks have been difficult with increased N/V. Pt presented to ER yesterday with low BP (80/50) and evidence of renal dysfunction (BUN/CR-74/6.9) Pt hydrated overnight and tolerating clear liquid diet . BUN/Cr today is 58/4.1 Pt brought to Radiology this AM for Barium swallow. Pt states has frequent nausea in AM and he was supine when test was performed. Pt could not tolerate and vomited the contrast and the procedure was aborted. Pt tolerated soup broth with string beans today without any difficulty. Pt brought to Radiology at 5 PM and repeat Barium Swallow showed pt in upright position and tolerated well. Barium Swallow showed small amount of reflux, but most contrast passed through stomach into duodenum and proximal small bowel without difficulty in under 5 minutes. There was an area of body of stomach, just distal to fundus that was narrowed but it could represent an area not completely filled by contrast. PMHx- Htn; Obesity Meds- Vasotec, HCTZ, Amlodipine, Pepcid P/E-Gen- Awake, alert, ambulating (walked to Radiology) Abd- all incisions healing well I-Dehydration (resolving), Nausea, Vomiting Acute Renal Insufficiency (resolving) Rec- UGI- no obstruction noted Continue clear liquids tonight, advance to soft diet tomorrow if tolerating well Will add Reglan for improved gastric transit Renal function as per Renal, PMD
[2017-06-20] MEDS: SODIUM CHLORIDE 1,000 ML IV SCH (17:54)
[2017-06-20] MEDS: METOCLOPRAMIDE HCL INJECTION 10 MG/2 ML VIAL IVPUSH SCH (17:54)
[2017-06-21] MEDS: METOCLOPRAMIDE HCL INJECTION 10 MG/2 ML VIAL IVPUSH SCH ×4 (00:31→17:19)
[2017-06-21] MEDS: INSULIN SLIDING SCALE (NOVOLOG) 1 VIAL SQ SCH ×3 (06:46→17:18)
[2017-06-21] MEDS: HEPARIN NA (PORCINE) 5,000 UNITS/ML 1ML VIAL SQ SCH ×2 (09:36→09:43)
[2017-06-21] MEDS: PANTOPRAZOLE SODIUM 40 MG VIAL IVPUSH SCH (09:36)
[2017-06-21 10:49] LABS: ALK PHOS 41 U/L (32-92); ANION GAP 9 (8-16); BILIRUBIN,TOTAL 0.9 mg/dl (0.2-1.0); BLOOD UREA NITROGEN 37 mg/dl (7-18); CALCIUM 8.8 mg/dl (8.4-10.2); CHLORIDE 103 mmol/L (98-107); CO2 24 mmol/L (22-28); CREATININE 2.5 mg/dl (0.6-1.3); GLUCOSE,RANDOM 98 mg/dl (74-106); POTASSIUM 4.4 mmol/L (3.5-5.1); SGOT/AST 22 U/L (10-42); SGPT/ALT 23 U/L (10-40); SODIUM 136 mmol/L (136-145); TOT PROT 6.9 g/dl (6.4-8.3)
--- NOTE | 2017-06-21 13:50 | PN ---
Progress Note (short form) - Note Progress Note: Afebrile, BP-130/84; P-66-88 Pt doing better Tolerating PO soft diet well Tolerating apple sauce, soft vegetables, soft cheese, pasta Pt drinking well States Reglan has helped improve nausea BUN/CR-37/2.5 (decreased from 58/4.1) Discussed PO diet with patient Recommended to continue soft diet at home, with frequent small sips of water, juice, liquids P- Agree with D/C home Will return for F/U labs on Friday Pt to hold BP meds I will see pt in office on , 06/26/2017 to advance PO diet if doing well
[2017-06-21] MEDS ORDERED: SODIUM CHLORIDE 1,000 ML IV STA (13:53)
--- NOTE | 2017-06-21 17:05 | DS ---
Physical Examination Vital Signs: Vital Signs Temperature 98.5 F 06/21/17 14:00 Pulse Rate 63 06/21/17 14:00 Respiratory Rate 19 06/21/17 14:00 Blood Pressure 98/54 06/21/17 14:00 O2 Sat by Pulse Oximetry (%) 100 06/21/17 14:00 Labs: CBC, BMP 06/20/17 08:20 06/21/17 09:58 Discharge Summary Reason For Visit: ACUTE RENAL FAILURE Current Active Problems ARF (acute renal failure) (Acute) Gastric bypass status for obesity (Acute) HTN (hypertension) (Acute) Nausea (Acute) Condition: Stable - Instructions Referrals: Demetri Beasley MD [Primary Care Provider] - 06/23/17 Disposition: HOME - Home Medications Comprehensive Discharge Medication List: Ambulatory Orders Famotidine [Pepcid -] 20 mg PO BID #60 tablet 05/16/17 Metoclopramide HCl [Reglan -] 10 mg PO QID #28 tablet 06/21/17 Pantoprazole Sodium [Protonix -] 40 mg PO BID #14 tablet.ec 06/21/17
[2017-06-21 17:07] VITALS: BP 101/58; PULSE 66; TEMP 98.8
[2017-06-21] MEDS: SODIUM CHLORIDE 1,000 ML IV SCH (17:19)
--- NOTE | 2017-06-24 10:11 | EKG ---
Test Reason : Blood Pressure : / mmHG Vent. Rate : 064 BPM Atrial Rate : 064 BPM P-R Int : 180 ms QRS Dur : 094 ms QT Int : 344 ms P-R-T Axes : 043 -06 -05 degrees QTc Int : 354 ms NORMAL SINUS RHYTHM NORMAL ECG WHEN COMPARED WITH ECG OF 19-JUN-2017 13:55, NO SIGNIFICANT CHANGE WAS FOUND Confirmed by Mike Townsend MD ([id number]) on 06/24/2017 10:11:20 AM Referred By: Confirmed By:Mike Townsend MD
== END 2017-06-21 17:50 | disposition home or self-care (01) | DRG 683 ==
LOC: FER 13:30 → FM/S 17:24
PROVIDERS: ADMIT Family Medicine; ATTEND Family Medicine
DX: N17.9 Acute kidney failure, unspecified (principal); E87.1 Hypo-osmolality and hyponatremia; I10 Essential (primary) hypertension; Z87.891 Personal history of nicotine dependence; Z98.84 Bariatric surgery status; E66.9 Obesity, unspecified; Z68.26 Body mass index [BMI] 26.0-26.9, adult; E78.5 Hyperlipidemia, unspecified; D64.9 Anemia, unspecified; R11.2 Nausea with vomiting, unspecified; E86.0 Dehydration
CPT/HCPCS: 36415; 71045-TC-FY; 74019-TC-FY; 74230-TC-FY; 76775-TC; 80053; 81003; 81015; 82550; 82553; 82570; 82962; 83036; 83735; 84100; 84156; 84300; 84484; 84540; 85025; 93005; 93306-TC; 99284-25; J1644; J7030

== ENCOUNTER 2017-06-23 15:43 | Observation (INO) | payer OTHER ==
[2017-06-23 15:48] VITALS: BMI 41.3
[2017-06-23] MEDS ORDERED: FAMOTIDINE 20 MG/50 ML IVPB 20 MG/50 ML MG IVPB ONE ×2 (16:54→17:19)
[2017-06-23] MEDS ORDERED: MAG HYDROX/AL HYDROX/SIMETH 30 ML UNIT-DOSE CUP PO ONE (16:54)
[2017-06-23] MEDS ORDERED: SODIUM CHLORIDE 1,000 ML IV STA (16:54)
[2017-06-23] MEDS ORDERED: ONDANSETRON 4 MG/2 ML VIAL IVPB ONE (16:54)
[2017-06-23] MEDS ORDERED: ONDANSETRON 4 MG/2 ML VIAL ONE (17:19)
[2017-06-23] MEDS ORDERED: MAG HYDROX/AL HYDROX/SIMETH 30 ML UNIT-DOSE CUP ONE (17:19)
--- NOTE | 2017-06-23 17:24 | PDOC ---
History of Present Illness <Vaughn Bauer - Last Filed: 06/23/17 17:31> - History of Present Illness Initial Comments: 06/23/17 17:19 "The patient is a 47 year old male, with a significant past medical history of hypertension, recent gastric bypass surgery 5 weeks ago, morbid obesity, who presents to the emergency department with, nausea since yesterday upon waking up. Pt was just discharged from hospital after being admitted for MARIA GUADALUPE due to poor PO intake. During his hospitalization, he was advanced to solid foods but has over the past few days been unable to tolerate anything by mouth without vomiting. The patient states he has tried taking small sips of water but vomits that as well. The patient reports taking Metoclopramide for the nausea with minimal relief. He denies any recent fevers, chills, headache or dizziness. He denies any recent diarrhea or constipation. He denies any recent chest pain or shortness of breath. He denies any recent dysuria, frequency, urgency or hematuria. Allergies: NKA Past surgical history: Gastric bypass 5 weeks ago. Surgeon: Dr. Finney <Michael Nguyễn - Last Filed: 06/23/17 19:19> - General Chief Complaint: Nausea Stated Complaint: NAUSEA Time Seen by Provider: 06/23/17 15:50 Past History <Vaughn Bauer - Last Filed: 06/23/17 17:31> - Past Medical History Anemia: No Asthma: No Cancer: No Cardiac Disorders: No CVA: No COPD: No DVT: No Dementia: No Diabetes: No GI Disorders: No Disorders: No HTN: Yes Hypercholesterolemia: No Liver Disease: No Seizures: No Thyroid Disease: No - Surgical History Abdominal Surgery: Yes (GASTRIC SLEEVE) Orthopedic Surgery: Yes (fx left leg) - Suicide/Smoking/Psychosocial Hx Smoking History: Never smoked Have you smoked in the past 12 months: No Information on smoking cessation initiated: No Hx Alcohol Use: No Drug/Substance Use Hx: No Substance Use Type: None Hx Substance Use Treatment: No <Michael Nguyễn - Last Filed: 06/23/17 19:19> - Past Medical History Allergies/Adverse Reactions: Allergies Allergy/AdvReac Type Severity Reaction Status Date / Time No Known Allergies Allergy Verified 06/23/17 15:45 Home Medications: Ambulatory Orders Famotidine [Pepcid -] 20 mg PO BID #60 tablet 05/16/17 Metoclopramide HCl [Reglan -] 10 mg PO QID #28 tablet 06/21/17 Pantoprazole Sodium [Protonix -] 40 mg PO BID #14 tablet.ec 06/21/17 Review of Systems - Review of Systems Comments:: 06/23/17 17:23 " GENERAL/CONSTITUTIONAL: +Fatigue. +Weakness. No fever or chills. HEAD, EYES, EARS, NOSE AND THROAT: No change in vision. No ear pain or discharge. No sore throat. CARDIOVASCULAR: No chest pain or shortness of breath. RESPIRATORY: No cough, wheezing, or hemoptysis. GASTROINTESTINAL: +Nausea. +Vomiting. No diarrhea or constipation. GENITOURINARY: No dysuria, frequency, or change in urination. MUSCULOSKELETAL: No joint or muscle swelling or pain. No neck or back pain. SKIN: No rash NEUROLOGIC: No headache, vertigo, loss of consciousness, or change in strength/ sensation. ENDOCRINE: No increased thirst. No abnormal weight change. HEMATOLOGIC/LYMPHATIC: No anemia, easy bleeding, or history of blood clots. ALLERGIC/IMMUNOLOGIC: No hives or skin allergy. " <Michael Nguyễn - Last Filed: 06/23/17 19:19> *Physical Exam - Vital Signs Last Vital Signs Temp Pulse Resp BP Pulse Ox 99.4 F 73 18 118/76 100 06/23/17 15:44 06/23/17 15:44 06/23/17 15:44 06/23/17 15:44 06/23/17 15:44 <Vaughn Bauer - Last Filed: 06/23/17 17:31> - Vital Signs Last Vital Signs Temp Pulse Resp BP Pulse Ox 99.4 F 73 18 118/76 100 06/23/17 15:44 06/23/17 15:44 06/23/17 15:44 06/23/17 15:44 06/23/17 15:44 - Physical Exam Comments: 06/23/17 17:23 "GENERAL: Awake, alert, and fully oriented, in no acute distress HEAD: No signs of trauma EYES: PERRLA, EOMI, sclera anicteric, conjunctiva clear ENT: Auricles normal inspection, hearing grossly normal, nares patent, oropharynx clear without exudates. Moist mucosa NECK: Nontender, no stepoffs, Normal ROM, supple, no lymphadenopathy, JVD, or masses LUNGS: Breath sounds equal, clear to auscultation bilaterally. No wheezes, and no crackles HEART: Regular rate and rhythm, normal S1 and S2, no murmurs, rubs or gallops ABDOMEN: Soft, nontender, normoactive bowel sounds. No guarding, no rebound. No masses EXTREMITIES: Normal range of motion, no edema. No clubbing or cyanosis. No cords, erythema, or tenderness NEUROLOGICAL: Cranial nerves II through XII intact. 5/5 strength and sensation in all extremities, Normal speech, normal gait, normal cerebellar function SKIN: Warm, Dry, normal turgor, no rashes or lesions noted. " <Michael Nguyễn - Last Filed: 06/23/17 19:19> ED Treatment Course - LABORATORY CBC & Chemistry Diagram: 06/23/17 17:30 06/23/17 17:30 <Michael Nguyễn - Last Filed: 06/23/17 19:19> Medical Decision Making - Medical Decision Making 06/23/17 17:23 47 M with poor PO tolerance after gastric bypass. Recently admitted for MARIA GUADALUPE likely 2/2 dehydration from poor PO intake. Will check renal function today. Pt with benign abdomen, low suspicion for any acute infectious process or post-op complication. - Labs - IVF, zofran, pepcid, maalox - Dr. Finney at bedside to evaluate 06/23/17 19:14 Labs with improved Cr 2.1. Pt reassessed - still continues to feel nauseous. I spoke with Dr. Finney, who recommends pt be admitted to hospital for further evaluation of his PO intolerance. Pt admitted to hospitalist. <Michael Nguyễn - Last Filed: 06/23/17 19:19> *DC/Admit/Observation/Transfer - Attestations Scribe Attestion: 06/23/17 17:31 Documentation prepared by Vaughn Bauer, acting as medical care manager for Michael Nguyễn MD. <Vaughn Bauer - Last Filed: 06/23/17 17:31> - Discharge Dispostion Admit: Yes - Attestations Physician Attestion: 06/23/17 19:18 I, Dr. Michael Nguyễn MD, attest that this document has been prepared under my direction and personally reviewed by me in its entirety. I further attest, that it accurately reflects all work, treatment, procedures and medical decision -making performed by me. <Michael Nguyễn - Last Filed: 06/23/17 19:19> Diagnosis at time of Disposition: Nausea - Discharge Dispostion Condition at time of disposition: Fair
[2017-06-23 17:45] LABS: MCHC 33.6 g/dl (32.0-35.9)
[2017-06-23 17:51] LABS: EOS % 1.5 % (0-4.5); HEMATOCRIT 39.1 % (35.4-49); HEMOGLOBIN 13.1 GM/dl (11.7-16.9); LYMPH % 25.8 % (8-40); MCH 26.5 pg (25.7-33.7); MEAN CELL VOLUME 78.7 fl (80-96); MEAN PLT VOLUME 9.3 fl (7.5-11.1); MONO % 8.4 % (3.8-10.2); NEUT % 63.3 % (42.8-82.8); PLATELET COUNT 156 K/MM3 (134-434); RBC 4.97 M/mm3 (4.00-5.60); RDW 15.9 % (11.9-15.9); WHITE BLOOD COUNT 7.4 K/mm3 (4.0-10.8)
[2017-06-23 18:10] LABS: ALBUMIN 4.2 g/dl (3.5-5.0); ALK PHOS 46 U/L (32-92); ANION GAP 10 (8-16); BILIRUBIN,TOTAL 0.9 mg/dl (0.2-1.0); BLOOD UREA NITROGEN 23 mg/dl (7-18); CALCIUM 9.6 mg/dl (8.4-10.2); CHLORIDE 102 mmol/L (98-107); CO2 24 mmol/L (22-28); CREATININE 2.1 mg/dl (0.6-1.3); GLUCOSE,RANDOM 94 mg/dl (74-106); POTASSIUM 4.4 mmol/L (3.5-5.1); SGOT/AST 24 U/L (10-42); SGPT/ALT 22 U/L (10-40); SODIUM 136 mmol/L (136-145); TOT PROT 7.2 g/dl (6.4-8.3)
[2017-06-23] MEDS ORDERED: ONDANSETRON 4 MG/2 ML VIAL IVPUSH PRN (19:41)
[2017-06-23 19:43] LABS: LIPASE 185 U/L (73-393)
[2017-06-23] MEDS: DEXTROSE 5%-0.45% SALINE 1,000 ML IV SCH (20:12)
--- NOTE | 2017-06-23 21:22 | HP ---
Admitting History and Physical - Primary Care Physician PCP: Demetri Beasley - Admission Chief Complaint: Nausea, Vomiting, Metallic Taste in Mouth History of Present Illness: This is a 47 year old man with a PMH of HTN, Severe Obesity s/p Gastric Sleeve, recent admission 06/19-06/21 for MARIA GUADALUPE, Dehydration. Who presents to the ED with decreased PO intake, nausea and metallic taste x 2 days. Patient reports having recent bariatric surgery, and now has had increased nausea and vomiting since last Friday. He reports the vomiting subsided and he has been able to tolerate po liquids and yogurt. He expressed his concerns of possible dehydration and acute renal failure. He states he spoke with his Surgeon and was advised to come in for evaluation and an Endoscopy. Patient denies fever, chills, cough, NINO, dizziness, SOB, CP, AP, diarrhea, constipation, hematochezia, melena, dysuria History Source: Patient Limitations to Obtaining History: No Limitations - Past Medical History Cardiovascular: Yes: HTN, Hyperlipdemia Heme/Onc: Yes: Anemia Endocrine: Yes: Other (Obesity) - Past Surgical History Past Surgical History: Yes: Bariatric Surgery - Smoking History Smoking history: Never smoked Have you smoked in the past 12 months: No - Alcohol/Substance Use Hx Alcohol Use: No History of Substance Use: reports: None - Social History Usual Living Arrangement: Yes: Alone ADL: Independent Occupation: employed History of Recent Travel: No Home Medications - Allergies Allergies/Adverse Reactions: Allergies Allergy/AdvReac Type Severity Reaction Status Date / Time No Known Allergies Allergy Verified 06/23/17 15:45 - Home Medications Home Medications: Ambulatory Orders Famotidine [Pepcid -] 20 mg PO BID #60 tablet 05/16/17 Metoclopramide HCl [Reglan -] 10 mg PO QID #28 tablet 06/21/17 Pantoprazole Sodium [Protonix -] 40 mg PO BID #14 tablet.ec 06/21/17 Family Disease History - Family Disease History Family Disease History: Heart Disease: Mother (HTN) Review of Systems - Review of Systems Constitutional: reports: Loss of Appetite Eyes: reports: No Symptoms HENT: reports: Other (metallic taste in mouth) Neck: reports: No Symptoms Cardiovascular: reports: No Symptoms Respiratory: reports: No Symptoms Gastrointestinal: reports: Nausea, Vomiting Genitourinary: reports: No Symptoms Breasts: reports: No Symptoms Reported Musculoskeletal: reports: No Symptoms Integumentary: reports: No Symptoms Neurological: reports: No Symptoms Endocrine: reports: No Symptoms Hematology/Lymphatic: reports: No Symptoms Psychiatric: reports: No Symptoms Physical Examination Vital Signs: Vital Signs Temperature 99.4 F 06/23/17 15:44 Pulse Rate 73 06/23/17 15:44 Respiratory Rate 18 06/23/17 15:44 Blood Pressure 118/76 06/23/17 15:44 O2 Sat by Pulse Oximetry (%) 100 06/23/17 15:44 Constitutional: Yes: No Distress, Calm, Obese Eyes: Yes: WNL, Conjunctiva Clear, EOM Intact, PERRL HENT: Yes: WNL, Atraumatic, Normocephalic, Other (dry mucous membranes) Neck: Yes: WNL, Supple, Trachea Midline Cardiovascular: Yes: WNL, Regular Rate and Rhythm, S1, S2 Respiratory: Yes: WNL, Regular, CTA Bilaterally Gastrointestinal: Yes: Abdomen, Obese, Hypoactive Bowel Sounds, Other Renal/: Yes: WNL Breast(s): Yes: WNL Musculoskeletal: Yes: WNL Extremities: Yes: WNL Edema: No Peripheral Pulses WNL: Yes Wound/Incision: Yes: Clean/Dry Neurological: Yes: WNL, Alert, Oriented ...Motor Strength: WNL Psychiatric: Yes: WNL, Alert, Oriented Labs: CBC, BMP 06/23/17 17:30 06/23/17 17:30 Intake & Output 06/21/17 06/22/17 06/23/17 06/24/17 23:59 23:59 23:59 23:59 Intake Total 0 Balance 0 Weight 130.635 kg Current Medications Generic Name Dose Route Start Last Admin Trade Name Freq PRN Reason Stop Dose Admin Dextrose/Sodium Chloride 1,000 mls @ 83 mls/hr 06/23/17 19:45 06/23/17 20:12 D5-1/2ns - IV 83 mls/hr ASDIR EVANS Administration Ondansetron HCl 4 mg 06/23/17 19:41 Zofran Injection IVPUSH Q6H PRN NAUSEA Problem List - Problems (1) Nausea Code(s): R11.0 - NAUSEA (2) Acute kidney injury Code(s): N17.9 - ACUTE KIDNEY FAILURE, UNSPECIFIED (3) Gastric bypass status for obesity Code(s): Z98.84 - BARIATRIC SURGERY STATUS (4) HTN (hypertension) Code(s): I10 - ESSENTIAL (PRIMARY) HYPERTENSION (5) DVT prophylaxis Code(s): NHX1467 - Assessment/Plan This is a 47 y/o man with a PMH of HTN, HLD, Severe Obesity s/p Gastric Sleeve, recent admission 06/19-06/21 MARIA GUADALUPE, Dehydration. Placed in Observation for MARIA GUADALUPE, Intractable Nausea Plan: 1. Nephro: MARIA GUADALUPE - Likely secondary to Dehydration - Cr 2.1 (improved from 7-2.5 last admission) - Continue gentle IVF -Avoid nephrotoxin drugs -Repeat BMP in am - FU with Nephrology in outpatient 2. 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 Cardiology: Hypertension, HLD - Stable - Monitor BP - Continue home meds 4. Severe Obesity - s/p Gastric Sleeve 5. FEN - D51/2NS@83ml/hr - Replete lytes prn - NPO until cleared by GI 6. DVT ppx - OOB - SCDs - Consider AC if LOS > 48 Code Status: Full Code Dispo: Observation Visit type - Emergency Visit Emergency Visit: Yes ED Registration Date: 06/23/17 Care time: The patient presented to the Emergency Department on the above date and was hospitalized for further evaluation of their emergent condition. - New Patient This patient is new to me today: Yes Date on this admission: 06/23/17 - Critical Care Critical Care patient: No Hospitalist Screening - Colonoscopy Questionnaire Colonoscopy Questionnaire: Colonoscopy Questionnaire - Patient: 50 - 75 years old and never had a screening colonoscopy: No History of colon or rectal polyps, or CA: No History of IBD, Crohn's disease or UC: No History of abdominal radiation therapy as a child: No - Relative: 1 with colon or rectal CA, or polyps at age 60 or younger: No Colon or rectal CA diagnosed at age 45 or younger: No Multiple relatives with colon or rectal CA: No - Outcome: Screening Result: Negative Screen
--- NOTE | 2017-06-24 08:44 | PN ---
Physical Exam: SUBJECTIVE: Patient seen and examined, denies any abdominal pain, nausea, or vomiting. OBJECTIVE: Patient is a 47 y/o morbidly obese male, patient is s/p gastric sleeve, 05/23/17, htn, and MARIA GUADALUPE. Patient was admitted from the emergency department for emergent condition. Vital Signs Period Temp Pulse Resp BP Sys/Nath Pulse Ox Last 24 Hr 98.5 F-99.4 F 57-73 17-18 118-134/76-85 97-100 GENERAL: The patient is awake, alert, and fully oriented, in no acute distress. HEAD: Normal with no signs of trauma. EYES: PERRL, extraocular movements intact, sclera anicteric, conjunctiva clear. No ptosis. ENT: Ears normal, nares patent, oropharynx clear without exudates, moist mucous membranes. NECK: Trachea midline, full range of motion, supple. LUNGS: Breath sounds equal, clear to auscultation bilaterally, no wheezes, no crackles, no accessory muscle use. HEART: Regular rate and rhythm, S1, S2 without murmur, rub or gallop. ABDOMEN: Soft, surgical sites, well approximated, no erythema noted, nontender , nondistended, normoactive bowel sounds, no guarding, no rebound, no hepatosplenomegaly, no masses. EXTREMITIES: 2+ pulses, warm, well-perfused, no edema. NEUROLOGICAL: Cranial nerves II through XII grossly intact. Normal speech, gait not observed. PSYCH: Normal mood, normal affect. SKIN: Warm, dry, normal turgor, no rashes or lesions noted Laboratory Results - last 24 hr CBC WBC 5.4 K/mm3 (4.0-10.8) 06/24/17 08:00 RBC 4.66 M/mm3 (4.00-5.60) 06/24/17 08:00 Hgb 12.5 GM/dl (11.7-16.9) 06/24/17 08:00 Hct 36.7 % (35.4-49) 06/24/17 08:00 MCV 78.8 fl (80-96) L 06/24/17 08:00 MCH 26.9 pg (25.7-33.7) 06/24/17 08:00 MCHC 34.2 g/dl (32.0-35.9) 06/24/17 08:00 RDW 16.0 % (11.9-15.9) H 06/24/17 08:00 Plt Count 131 K/MM3 (134-434) L 06/24/17 08:00 MPV 9.0 fl (7.5-11.1) 06/24/17 08:00 Neutrophils % 59.4 % (42.8-82.8) 06/24/17 08:00 Lymphocytes % 27.7 % (8-40) 06/24/17 08:00 Monocytes % 9.9 % (3.8-10.2) 06/24/17 08:00 Eosinophils % 2.5 % (0-4.5) 06/24/17 08:00 Basophils % 0.5 % (0-2.0) 06/24/17 08:00 CMP Sodium 135 mmol/L (136-145) L 06/24/17 08:00 Potassium 3.9 mmol/L (3.5-5.1) 06/24/17 08:00 Chloride 104 mmol/L (98-107) 06/24/17 08:00 Carbon Dioxide 26 mmol/L (22-28) 06/24/17 08:00 Anion Gap 5 (8-16) L 06/24/17 08:00 BUN 19 mg/dl (7-18) H 06/24/17 08:00 Creatinine 2.0 mg/dl (0.6-1.3) H 06/24/17 08:00 Creat Clearance w eGFR 34.17 (>60) 06/23/17 17:30 Random Glucose 111 mg/dl (74-106) H 06/24/17 08:00 Calcium 8.7 mg/dl (8.4-10.2) 06/24/17 08:00 Magnesium 1.6 mg/dL (1.8-2.4) L D 06/24/17 08:00 Total Bilirubin 0.9 mg/dl (0.2-1.0) 06/23/17 17:30 AST 24 U/L (10-42) 06/23/17 17:30 ALT 22 U/L (10-40) 06/23/17 17:30 Alkaline Phosphatase 46 U/L (32-92) 06/23/17 17:30 Total Protein 7.2 g/dl (6.4-8.3) 06/23/17 17:30 Albumin 4.2 g/dl (3.5-5.0) 06/23/17 17:30 Lipase 185 U/L (73-393) 06/23/17 17:30 Active Medications Generic Name Dose Route Start Last Admin Trade Name Freq PRN Reason Stop Dose Admin Dextrose/Sodium Chloride 1,000 mls @ 83 mls/hr 06/23/17 19:45 06/23/17 20:12 D5-1/2ns - IV 83 mls/hr ASDIR EVANS Administration Ondansetron HCl 4 mg 06/23/17 19:41 Zofran Injection IVPUSH Q6H PRN NAUSEA IMAGING chest xray: no acute pathology barium swallow: no acute abnormality renal ultrasound: normal exam ASSESSMENT/PLAN: 1) GI nausea/vomiting - resolved, patient is s/p gastric sleeve, case discussed with Dr Finney and Dr Martinez, endo to be completed tomm in AM by Dr Martinez - soft diet, serial abdominal exams - Dr Finney and Dr Martinez, consulted and followed 2) nephrology MARIA GUADALUPE - repeat creatine 2.0, improved from 4.0 last admission, continue iv hydration - strict i/o and daily weights - pt will need outpatient nephrology follow up 3) cardiovascular hypertension - no home meds, b/p at goal 5. FEN - D51/2NS@83ml/hr - Replete lytes prn - soft diet, then NPO after mn 6. DVT ppx - OOB - SCDs - Consider AC if LOS > 48 Code Status: Full Code Dispo: Observation Visit type - Emergency Visit Emergency Visit: Yes ED Registration Date: 06/23/17 Care time: The patient presented to the Emergency Department on the above date and was hospitalized for further evaluation of their emergent condition. - New Patient This patient is new to me today: Yes Date on this admission: 06/24/17 - Critical Care Critical Care patient: No - Discharge Referral Referred to [facility] Med P.C.: No
[2017-06-24 08:57] LABS: ANION GAP 5 (8-16); BLOOD UREA NITROGEN 19 mg/dl (7-18); CALCIUM 8.7 mg/dl (8.4-10.2); CHLORIDE 104 mmol/L (98-107); CO2 26 mmol/L (22-28); GLUCOSE,RANDOM 111 mg/dl (74-106); MAGNESIUM 1.6 mg/dL (1.8-2.4); POTASSIUM 3.9 mmol/L (3.5-5.1); SODIUM 135 mmol/L (136-145)
[2017-06-24 09:02] LABS: BASO % 0.5 % (0-2.0); EOS % 2.5 % (0-4.5); HEMATOCRIT 36.7 % (35.4-49); HEMOGLOBIN 12.5 GM/dl (11.7-16.9); LYMPH % 27.7 % (8-40); MCH 26.9 pg (25.7-33.7); MCHC 34.2 g/dl (32.0-35.9); MEAN CELL VOLUME 78.8 fl (80-96); MONO % 9.9 % (3.8-10.2); NEUT % 59.4 % (42.8-82.8); PLATELET COUNT 131 K/MM3 (134-434); RBC 4.66 M/mm3 (4.00-5.60); WHITE BLOOD COUNT 5.4 K/mm3 (4.0-10.8)
[2017-06-24] MEDS ORDERED: MAGNESIUM SULFATE 2 GM in SODIUM CHLORIDE 100 ML IVPB ONE (10:09)
[2017-06-24] MEDS ORDERED: MAGNESIUM SULFATE IN WATER 2 GM/50 ML IVPB IVPB ONE (10:30)
[2017-06-24] MEDS ORDERED: ZOLPIDEM TARTRATE 5 MG TABLET PO PRN (13:58)
[2017-06-24] MEDS ORDERED: ACETAMINOPHEN 325 MG TABLET (FP) PO PRN (13:58)
[2017-06-24] MEDS: METOCLOPRAMIDE HCL 10 MG TABLET (FP) PO SCH ×3 (14:09→21:07)
[2017-06-24] MEDS: SUCRALFATE 1 GM/10 ML UNIT DOSE CUPS PO SCH ×3 (14:09→21:07)
--- NOTE | 2017-06-24 16:30 | CONSULT ---
Consult - text type - Consultation Consultation Note: Pt well known to me Pt 6 weeks S/P Sleeve Gastrectomy C/O vomiting 2 days ago, and arrived to ER yesterday Pt with renal dysfunction last week secondary to dehydration BUN/CR now 19/2.0 Pt states drinking today and ate mashed potatoes and a pear with no difficulty Pt denies nausea today Pt receiving Reglan with apparent improvement P- Upper endoscopy tomorrow to check status of Gastric Sleeve NPO after midnight Cont DVT prophylaxis
[2017-06-24] MEDS: PANTOPRAZOLE 40 MG TABLET (FP) PO SCH (21:06)
[2017-06-24] MEDS: DEXTROSE 5%-0.45% SALINE 1,000 ML IV SCH (21:07)
[2017-06-24] MEDS ORDERED: FAMOTIDINE 20 MG TABLET PO SCH (22:00)
[2017-06-25] MEDS ORDERED: PROPOFOL 20 ML ONE ×3 (07:00→10:12)
[2017-06-25] MEDS ORDERED: LIDOCAINE HCL/PF 2% SDV 5ML VIAL ONE (07:01)
[2017-06-25 08:24] LABS: ANION GAP 1 (8-16); BLOOD UREA NITROGEN 13 mg/dl (7-18); CALCIUM 8.5 mg/dl (8.4-10.2); CHLORIDE 108 mmol/L (98-107); CO2 25 mmol/L (22-28); CREATININE 1.8 mg/dl (0.6-1.3); GLUCOSE,RANDOM 108 mg/dl (74-106); PHOSPHOROUS 3.1 mg/dl (2.5-4.6); POTASSIUM 3.5 mmol/L (3.5-5.1); SODIUM 134 mmol/L (136-145)
[2017-06-25 08:28] LABS: BASO % 0.6 % (0-2.0); EOS % 2.1 % (0-4.5); HEMATOCRIT 36.2 % (35.4-49); HEMOGLOBIN 12.3 GM/dl (11.7-16.9); LYMPH % 24.2 % (8-40); MCH 26.8 pg (25.7-33.7); MCHC 34.1 g/dl (32.0-35.9); MEAN CELL VOLUME 78.7 fl (80-96); MEAN PLT VOLUME 8.9 fl (7.5-11.1); MONO % 9.9 % (3.8-10.2); NEUT % 63.2 % (42.8-82.8); PLATELET COUNT 129 K/MM3 (134-434); WHITE BLOOD COUNT 6.3 K/mm3 (4.0-10.8)
[2017-06-25] MEDS: METOCLOPRAMIDE HCL 10 MG TABLET (FP) PO SCH ×4 (09:22→22:14)
[2017-06-25] MEDS: SUCRALFATE 1 GM/10 ML UNIT DOSE CUPS PO SCH ×4 (09:22→22:14)
[2017-06-25] MEDS: D5-1/2NS+20 MEQ KCL - 20 MEQ/1,000 ML INFUS.BAG IV SCH (09:22)
[2017-06-25] MEDS: PANTOPRAZOLE 40 MG TABLET (FP) PO SCH ×2 (09:22→22:14)
--- NOTE | 2017-06-25 13:35 | PN ---
Physical Exam: SUBJECTIVE: Patient seen and examined, patient reports feeling well, denies any abd pain, s/p endo today with Dr Martinez, tolerating soft diet OBJECTIVE: patient is a 47 y/o morbidly obese male, patient is s/p gastric sleeve, 05/23/17, htn, and MARIA GUADALUPE. Patient was admitted from the emergency department for emergent condition. Vital Signs Period Temp Pulse Resp BP Sys/Nath Pulse Ox Last 24 Hr 98.2 F-98.6 F 54-72 16-20 118-145/68-88 99-100 GENERAL: The patient is obese, awake, alert, and fully oriented, in no acute distress. HEAD: Normal with no signs of trauma. EYES: PERRL, extraocular movements intact, sclera anicteric, conjunctiva clear. No ptosis. ENT: Ears normal, nares patent, oropharynx clear without exudates, moist mucous membranes. NECK: Trachea midline, full range of motion, supple. LUNGS: Breath sounds equal, clear to auscultation bilaterally, no wheezes, no crackles, no accessory muscle use. HEART: Regular rate and rhythm, S1, S2 without murmur, rub or gallop. ABDOMEN: Soft, nontender, nondistended, normoactive bowel sounds, no guarding, no rebound, no hepatosplenomegaly, no masses. EXTREMITIES: 2+ pulses, warm, well-perfused, no edema. NEUROLOGICAL: Cranial nerves II through XII grossly intact. Normal speech, gait not observed. PSYCH: Normal mood, normal affect. SKIN: Warm, dry, normal turgor, no rashes or lesions noted Laboratory Results - last 24 hr 06/25/17 06/25/17 07:30 07:30 WBC 6.3 RBC 4.60 Hgb 12.3 Hct 36.2 MCV 78.7 L MCH 26.8 MCHC 34.1 RDW 16.0 H Plt Count 129 L MPV 8.9 Neutrophils % 63.2 Lymphocytes % 24.2 Monocytes % 9.9 Eosinophils % 2.1 Basophils % 0.6 Sodium 134 L Potassium 3.5 Chloride 108 H Carbon Dioxide 25 Anion Gap 1 L BUN 13 D Creatinine 1.8 H Random Glucose 108 H Calcium 8.5 Phosphorus 3.1 D Magnesium 2.0 D Active Medications Generic Name Dose Route Start Last Admin Trade Name Freq PRN Reason Stop Dose Admin Acetaminophen 650 mg 06/24/17 13:58 Tylenol - PO Q4H PRN PAIN LEVEL 1-5 Potassium Chloride/Dextrose/Sod Cl 20 meq in 1,000 mls @ 83 mls/hr 06/25/17 09 :15 06/25/17 09:22 D5-1/2ns+20 Meq Kcl - IV 83 mls/hr ASDIR EVANS Administration Metoclopramide HCl 10 mg 06/24/17 14:00 06/25/17 09:22 Reglan - PO 10 mg QID EVANS Administration Ondansetron HCl 4 mg 06/23/17 19:41 Zofran Injection IVPUSH Q6H PRN NAUSEA Pantoprazole Sodium 40 mg 06/24/17 22:00 06/25/17 09:22 Protonix - PO 40 mg BID EVANS Administration Sucralfate 1 gm 06/24/17 14:00 06/25/17 09:22 Carafate Oral Suspension - PO 1 gm QID EVANS Administration Zolpidem Tartrate 5 mg 06/24/17 13:58 Ambien - PO HS PRN INSOMNIA IMAGING chest xray: no acute pathology barium swallow: no acute abnormality renal ultrasound: normal exam ASSESSMENT/PLAN: 1) GI nausea/vomiting s/p gastric sleeve - s/p endo today, discussed with Dr Martinez, small stricture noted, re-consult with Dr Finney - continue soft diet and serial abd exam - Dr Finney and Dr Martinez, consulted and followed 2) nephrology MARIA GUADALUPE - repeat creatine 1.8, improved from 4.0 last admission, continue iv hydration - strict i/o and daily weights - pt will need outpatient nephrology follow up 3) cardiovascular hypertension - no home meds, b/p at goal 5. FEN - D51/2NS w/20meq kci @83ml/hr - Replete lytes prn - soft diet 6. DVT ppx - OOB - SCDs - Consider AC if LOS > 48 Code Status: Full Code Dispo: Observation Visit type - Emergency Visit Emergency Visit: Yes ED Registration Date: 06/23/17 Care time: The patient presented to the Emergency Department on the above date and was hospitalized for further evaluation of their emergent condition. - New Patient This patient is new to me today: No - Critical Care Critical Care patient: No - Discharge Referral Referred to [facility] Med P.C.: No
--- NOTE | 2017-06-25 17:14 | PN ---
Progress Note (short form) - Note Progress Note: Patient seen and chart reviewed. Upper endoscopy performed this am with report in chart; findings notable for some retained fluid/food in proximal stomach and a suggestion of a mild luminal narrowing in the distal body (s/p sleeve). May have some delayed gastric emptying due to either mild luminal narrowing/ mechanical issue and/or motility issue (s/p surgery). Biopsy taken in antrum to r/o H pylori. Discussed with Dr. Finney. Rec: small, frequent meals rather than large meals PPI daily (or H2 brunilda) could use Reglan 10mg PO q6-8 hrs prn follow clinically; hopefully will have improved gastric emptying over next few weeks.
[2017-06-25 18:18] VITALS: TEMP 98.6
[2017-06-26 06:53] VITALS: BP 129/86; PULSE 80
[2017-06-26] MEDS: SUCRALFATE 1 GM/10 ML UNIT DOSE CUPS PO SCH (09:29)
[2017-06-26] MEDS: PANTOPRAZOLE 40 MG TABLET (FP) PO SCH (09:29)
[2017-06-26] MEDS: D5-1/2NS+20 MEQ KCL - 20 MEQ/1,000 ML INFUS.BAG IV SCH (09:30)
[2017-06-26] MEDS: METOCLOPRAMIDE HCL 10 MG TABLET (FP) PO SCH (09:32)
[2017-06-26] MEDS ORDERED: MULTIVITAMINS (DAILY MVI) TABLET (FP) PO SCH (10:00)
[2017-06-26] MEDS ORDERED: CYANOCOBALAMIN 1,000 MCG TABLET (FP) PO SCH (10:00)
--- NOTE | 2017-06-26 11:22 | PN ---
Progress Note (short form) - Note Progress Note: Pt doing better No N/V Upper endoscopy report appreciated BUN/CR-13/1.8 (continue to improve) Discussed PO diet with patient Will remain on full liquids/soft diet Tolerating yogurt with no difficulty Pt instructed to contact me if any vomiting/prolonged nausea episodes to avoid subsequent dehydration P- D/C home F/U with Bariatric Surgery in 1 week F/U with Dr Beasley as indicated
[2017-06-26 11:30] LABS: BASO % 0.4 % (0-2.0); EOS % 1.9 % (0-4.5); HEMATOCRIT 37.3 % (35.4-49); HEMOGLOBIN 12.5 GM/dl (11.7-16.9); LYMPH % 21.3 % (8-40); MCH 26.4 pg (25.7-33.7); MCHC 33.6 g/dl (32.0-35.9); MEAN CELL VOLUME 78.6 fl (80-96); MEAN PLT VOLUME 8.8 fl (7.5-11.1); MONO % 9.8 % (3.8-10.2); NEUT % 66.6 % (42.8-82.8); PLATELET COUNT 141 K/MM3 (134-434); RBC 4.74 M/mm3 (4.00-5.60); RDW 16.3 % (11.9-15.9); WHITE BLOOD COUNT 6.6 K/mm3 (4.0-10.8)
[2017-06-26 11:47] LABS: ANION GAP 6 (8-16); BLOOD UREA NITROGEN 10 mg/dl (7-18); CHLORIDE 105 mmol/L (98-107); CO2 25 mmol/L (22-28); CREATININE 1.8 mg/dl (0.6-1.3); GLUCOSE,RANDOM 108 mg/dl (74-106); MAGNESIUM 1.8 mg/dL (1.8-2.4); PHOSPHOROUS 2.7 mg/dl (2.5-4.6); POTASSIUM 4.2 mmol/L (3.5-5.1); SODIUM 136 mmol/L (136-145)
--- NOTE | 2017-06-26 12:02 | DS ---
Physical Exam: SUBJECTIVE: Patient seen and examined, patient is tolerating full liquid diet, denies any abdominal pain, nausea and vomiting. OBJECTIVE: Patient is a 47 year old man with a PMH of HTN, Severe Obesity s/p Gastric Sleeve, recent admission 06/19-06/21 for MARIA GUADALUPE, Dehydration. Who presents to the ED with decreased PO intake, nausea and metallic taste x 2 days. Patient reports having recent bariatric surgery, and now has had increased nausea and vomiting since last Friday. He reports the vomiting subsided and he has been able to tolerate po liquids and yogurt. He expressed his concerns of possible dehydration and acute renal failure. He states he spoke with his Surgeon and was advised to come in for evaluation and an Endoscopy. Patient denies fever, chills, cough, NINO, dizziness, SOB, CP, AP, diarrhea, constipation, hematochezia, melena, dysuria Vital Signs Period Temp Pulse Resp BP Sys/Nath Pulse Ox Last 24 Hr 98.5 F-98.6 F 50-80 16-18 123-136/74-89 99-100 PHYSICAL EXAM GENERAL: The patient is awake, alert, and fully oriented, in no acute distress. HEAD: Normal with no signs of trauma. EYES: PERRL, extraocular movements intact, sclera anicteric, conjunctiva clear. ENT: Ears normal, nares patent, oropharynx clear without exudates, moist mucous membranes. NECK: Trachea midline, full range of motion, supple. LUNGS: Breath sounds equal, clear to auscultation bilaterally, no wheezes, no crackles, no accessory muscle use. HEART: Regular rate and rhythm, S1, S2 without murmur, rub or gallop. ABDOMEN: Soft, nontender, nondistended, normoactive bowel sounds, no guarding, no rebound, no hepatosplenomegaly, no masses. EXTREMITIES: 2+ pulses, warm, well-perfused, no edema. NEUROLOGICAL: Cranial nerves II through XII grossly intact. Normal speech, gait not observed. PSYCH: Normal mood, normal affect. SKIN: Warm, dry, normal turgor, no rashes or lesions noted. LABS Laboratory Results - last 24 hr 06/26/17 06/26/17 10:44 10:44 WBC 6.6 RBC 4.74 Hgb 12.5 Hct 37.3 MCV 78.6 L MCH 26.4 MCHC 33.6 RDW 16.3 H Plt Count 141 MPV 8.8 Neutrophils % 66.6 Lymphocytes % 21.3 Monocytes % 9.8 Eosinophils % 1.9 Basophils % 0.4 Sodium 136 Potassium 4.2 Chloride 105 Carbon Dioxide 25 Anion Gap 6 L BUN 10 D Creatinine 1.8 H Random Glucose 108 H Calcium 9.0 Phosphorus 2.7 Magnesium 1.8 IMAGING chest xray: no acute pathology barium swallow: no acute abnormality renal ultrasound: normal exam HOSPITAL COURSE: patient was admitted from the emergency department for nusea/vomiting, s/p gastric sleeve, s/p endoscopy 06/25/17, by Dr Martinez, GI. small stricture noted. Dr Finney consulted advised to continue soft/full liquid diet, follow up with surgeon within 1 week as outpatient. Patient was noted to have MARIA GUADALUPE upon arrival , repeat creatine 1.8, improved from 4.0 since last admission, improved with IV hydration. Patient has a past medical history of hypertension, no home medications, blood pressure remained at goal. Date of Admission:06/23/17 Date of Discharge: 06/26/17 Minutes to complete discharge: 45 Discharge Summary Reason For Visit: NAUSEA Current Active Problems Acute kidney injury (Acute) DVT prophylaxis (Acute) Nausea (Acute) Condition: Improved - Instructions Diet, Activity, Other Instructions: continue taking protonix and reglan as prescribed continue soft/full liquid diet please follow up with Dr Gimenez within 1 week if any new or persistent symptoms develop please return to the emergency department Referrals: Ced Finney MD [Staff Physician] - Disposition: HOME - Home Medications Comprehensive Discharge Medication List: Ambulatory Orders Famotidine [Pepcid -] 20 mg PO BID #60 tablet 05/16/17 Metoclopramide HCl [Reglan -] 10 mg PO QID #28 tablet 06/21/17 Pantoprazole Sodium [Protonix -] 40 mg PO BID #14 tablet.ec 06/21/17 This patient is new to me today: No Emergency Visit: Yes ED Registration Date: 06/23/17 Care time: The patient presented to the Emergency Department on the above date and was hospitalized for further evaluation of their emergent condition. Critical Care patient: No - Discharge Referral Referred to [facility] Med P.C.: No
--- NOTE | 2017-06-26 16:45 | PATH ---
Surgical Pathology Report Patient Name: ANDER FRANK Med. Rec. #: [id number] /Age/Gender: 1970 (Age: 47) / M Account: [id number] Location: [facility] MED-SURG Taken: 06/25/2017 Received: 06/25/2017 Reported: 06/26/2017 Physicians: Sudeep Pacheco M.D. Specimen(s) Received [facility] ANTRUM Clinical History Nausea, 6 weeks post surgery for sleeve Postoperative diagnosis: Gastritis status post gastric sleeve Final Diagnosis Antrum, biopsy: Mild chronic gastritis with features of reactive gastropathy. Immunostain is negative for H.pylori organisms. Electronically Signed Iris Foy M.D. Gross Description Received in formalin, labeled "antrum" is a prescott, irregular portion of soft tissue measuring 0.3 cm. in greatest dimension. The specimen is submitted in toto in one cassette. /06/25/2017 saudi06/25/2017
== END 2017-06-26 12:30 | disposition home or self-care (01) ==
LOC: FER 15:43 → FM/S 20:18
PROVIDERS: ADMIT Internal Medicine; ATTEND Nurse Practitioner Family
PROC: 0DB68ZX Excision of Stomach, Via Natural or Artificial Opening Endoscopic, Diagnostic (ICD-10-PCS; principal; 2017-06-23)
PROC: 3E0337Z Introduction of Electrolytic and Water Balance Substance into Peripheral Vein, Percutaneous Approach (ICD-10-PCS; 2017-06-23)
DX: R11.0 Nausea (principal); K29.50 Unspecified chronic gastritis without bleeding; K31.9 Disease of stomach and duodenum, unspecified; R10.13 Epigastric pain; I10 Essential (primary) hypertension; N17.9 Acute kidney failure, unspecified; E66.01 Morbid (severe) obesity due to excess calories; Z68.41 Body mass index [BMI] 40.0-44.9, adult; Z98.84 Bariatric surgery status
CPT/HCPCS: 36415; 80048; 80053; 83690; 83735; 84100; 85025; 88305-TC; 88342-TC; 96361; 96365; 96367; 96375; 99283-25; G0378; J7030

== ENCOUNTER 2018-02-19 23:21 | Emergency (ER) | payer OTHER ==
[2018-02-19 23:32] VITALS: BP 138/97; PULSE 66; TEMP 98.8; BMI 41.4
--- NOTE | 2018-02-20 00:15 | PDOC ---
History of Present Illness - General Chief Complaint: Injury Stated Complaint: LH 2ND FINGER INJURY - History of Present Illness Initial Comments: 02/20/18 00:25 This 48-year-old man with a history of HTN/bariatric surgery presents with injury to his left index finger. Earlier today (approximately 6 hours prior to presentation) he sliced off a portion of the distal phalanx of his left index finger while cutting alex. Patient described the large carving knife as bouncing off of the lemon and cleanly cutting a slice of skin and small portion of nail from the radial side of the distal phalanx/dorsal surface of the finger. With persistent direct pressure to the wound and bandaging, hemostasis was achieved. However, tonight the patient was alarmed by pulsating pain in the finger and removed the bandage. He then had recurrent bleeding from the wound. Patient reports no previous difficulty with wound healing. No history of resistant organism colonization or infection Past History - Past Medical History Allergies/Adverse Reactions: Allergies Allergy/AdvReac Type Severity Reaction Status Date / Time No Known Allergies Allergy Verified 06/23/17 15:45 Home Medications: Ambulatory Orders NK [No Known Home Medication] 02/19/18 Anemia: No Asthma: No Cancer: No Cardiac Disorders: No CVA: No COPD: No DVT: No Dementia: No Diabetes: No GI Disorders: No Disorders: No HTN: Yes Hypercholesterolemia: No Liver Disease: No Seizures: No Thyroid Disease: No - Surgical History Abdominal Surgery: Yes (GASTRIC SLEEVE) Orthopedic Surgery: Yes (fx left leg) - Suicide/Smoking/Psychosocial Hx Smoking History: Never smoked Have you smoked in the past 12 months: No Hx Alcohol Use: No Drug/Substance Use Hx: No Substance Use Type: None Hx Substance Use Treatment: No Review of Systems - Review of Systems Able to Perform ROS?: Yes Comments:: 12 point review of systems is negative except for what is noted in the history of present illness *Physical Exam - Vital Signs Last Vital Signs Temp Pulse Resp BP Pulse Ox 98.8 F 66 16 138/97 98 02/19/18 23:27 02/19/18 23:27 02/19/18 23:27 02/19/18 23:27 02/19/18 23:27 - Physical Exam Comments: GENERAL: Adult male, alert and oriented 3, in no acute distress HEAD: Normal with no signs of trauma. EYES: PERRLA, EOMI, sclera anicteric, conjunctiva clear. EXTREMITIES: Left upper extremity-index finger: 1 cm x 0.5 cm partial-thickness skin avulsion, radial side of the distal phalanx, dorsal surface Small portion of nail was also removed Surface is clean without foreign body; mild amount of oozing No other extremity injury or abnormality seen NEUROLOGICAL: Cranial nerves II through XII grossly intact. Normal speech. No focal neurological deficits. MUSCULOSKELETAL: Back non-tender to palpation, no CVA tenderness SKIN: Warm, Dry, normal turgor, no rashes or lesions noted. Moderate Sedation - Procedure Monitoring Vital Signs: Procedure Monitoring Vital Signs Temperature 98.8 F 02/19/18 23:27 Pulse Rate 66 02/19/18 23:27 Respiratory Rate 16 02/19/18 23:27 Blood Pressure 138/97 02/19/18 23:27 O2 Sat by Pulse Oximetry (%) 98 02/19/18 23:27 Progress Note - Progress Note Progress Note: Under sterile technique 1.5 cm x 1.5 cm square of Surgicel cut and applied to wound. With gentle direct pressure, hemostasis achieved. Dry sterile dressing applied followed by tube dressing. Patient tolerated procedure well. Patient will be discharged with instructions to continue daily dressing changes. The Surgicel should be trimmed back as needed. Protective dressing of sterile gauze should be continued for at least the next 5-7 days. If signs of infection develop, he should be seen by his PMD () or return to the ER. *DC/Admit/Observation/Transfer Diagnosis at time of Disposition: Avulsion of skin of finger Qualifiers: Encounter type: initial encounter Qualified Code(s): S61.209A - Unspecified open wound of unspecified finger without damage to nail, initial encounter - Discharge Dispostion Disposition: HOME Condition at time of disposition: Stable - Referrals Referrals: Demetri Beasley MD [Primary Care Provider] - - Patient Instructions Printed Discharge Instructions: DI for Avulsion Laceration (Not Requiring Sutures) Additional Instructions: Keep bandage intact and as dry as possible for 24 hours Elevate left hand at heart level or above as much as possible for the first 24 hours After 24 hours, remove initial bandage ; trim Surgicel as needed and reapply protective dressing Daily dressing changes for at least the next 5 days Can use bacitracin or Neosporin ointment to wound after the first 48 hours Return to ER or see if area is red/swollen/painful - Post Discharge Activity
== END 2018-02-20 00:28 | disposition home or self-care (01) ==
LOC: FER 23:21
DX: S61.209A Unspecified open wound of unspecified finger without damage to nail, initial encounter (principal); W26.0XXA Contact with knife, initial encounter; Y93.G1 Activity, food preparation and clean up; Y92.89 Other specified places as the place of occurrence of the external cause; I10 Essential (primary) hypertension; Z98.84 Bariatric surgery status
CPT/HCPCS: 99281-25

== ENCOUNTER 2019-05-08 10:59 | Emergency (ER) | payer OTHER ==
[2019-05-08 11:44] VITALS: BP 188/100; PULSE 70; TEMP 97.2; BMI 32.3
--- NOTE | 2019-05-08 12:05 | PDOC ---
Documentation entered by Aiyana Schultz SCRIBE, acting as scribe for Sara Carcamo MD. Sara Carcamo MD: This documentation has been prepared by the Marion rivera Nirvannie, SCRIBE, under my direction and personally reviewed by me in its entirety. I confirm that the documentation accurately reflects all work, treatment, procedures, and medical decision making performed by me. History of Present Illness - General Chief Complaint: Substance Abuse Stated Complaint: INTOX Time Seen by Provider: 05/08/19 11:27 History Source: Patient Exam Limitations: No Limitations - History of Present Illness Initial Comments: 05/08/19 11:53 HPI: 49YOM with a significant past medical history of HTN (noncompliant with medications), s/p gastric bypass surgery, previously admitted in May 2017 for MARIA GUADALUPE, Dehydration. who presents to the emergency department via EMS after being found on the ground asleep. As per patient, he drank a lot of alcohol and smoked some weed last night because it was Val. Patients last drink and last time he used recreational marijuana was yesterday. While in the ED, patient notes to be asymptomatic and is only concerned for his missing wallet. He denies any daily, excessive usage of alcohol or recreational drugs. He denies any recent SI or HI. He denies any feelings of depression. Denies fever, chills, chest pain, SOB, palpitation, dizziness, weakness, N, V, D, abdominal pain, bladder and bowel problems, leg swelling, He denies being homeless. no known trauma or falls. Allergies: None Past Medical History: HTN (no meds) Social history: + ETOH or cannibis use recreationally. Surgical history: S/p gastric bypass surgery Meds: as documented in EMR PMD: Dr. Beasley Surgeon: Dr. Finney Review of systems: Constitutional: no fevers or chills. HEENT: no headache or dizziness. No congestion. No visual/hearing disturbances. CVS: no cp or syncope. Resp: no sob. No cough. Gastrointestinal: no abdominal pain, nausea or vomiting. Genitourinary: no urinary sx, hematuria. MUSCULOSKELETAL: No joint pain and swelling. No neck or back pain. SKIN: no redness or skin changes, no discharge, no rash. No wounds. Hematologic: no easy bruising/bleeding. NEUROLOGIC: No headache, dizziness, LOC or altered mental status. No weakness, numbness or tingling. Psych: no anxiety or depression Allergic/Immunologic: no allergies All other systems reviewed and negative, or as documented in HPI. Physical exam: General: awake and alert, NAD. alert, oriented to person time and place. GCS 15 HEENT: NCAT, PERRL, EOMI, clear conjunctiva, anicteric, moist mucous membranes , clear oropharynx, no oral lesions.. Neck: neck supple, FROM, no midline C spine tenderness Resp: CTAB, normal and even respirations, no respiratory distress CVS: RRR, no murmurs, 2+ peripheral pulses throughout, no peripheral edema Chest: nontender. no skin discoloration Abdomen: soft, NTND, no rebound or guarding. No CVAT. Back: nontender, normal inspection and ROM] MSK: no edema, IVY x4, ROM intact. No clubbing or cyanosis. normal bulk and tone. Extremities: no calf tenderness Neuro: alert, oriented appropriately; no focal neurologic deficits, clear speech , gait stable, no ataxia. 5/5 strength prox and distally, SILT. Skin: warm and well perfused, cap refill <2 sec, normal color, no skin discoloration, no wounds. 05/08/19 12:06 05/08/19 12:48 Past History - Past Medical History Allergies/Adverse Reactions: Allergies Allergy/AdvReac Type Severity Reaction Status Date / Time No Known Allergies Allergy Verified 05/08/19 11:38 Home Medications: Ambulatory Orders NK [No Known Home Medication] 02/19/18 Anemia: No Asthma: No Cancer: No Cardiac Disorders: No CVA: No COPD: No DVT: No Dementia: No Diabetes: No GI Disorders: No Disorders: No HTN: Yes Hypercholesterolemia: No Liver Disease: No Seizures: No Thyroid Disease: No - Surgical History Abdominal Surgery: Yes (GASTRIC SLEEVE) Orthopedic Surgery: Yes (fx left leg) - Psycho Social/Smoking Cessation Hx Smoking History: Never smoked Have you smoked in the past 12 months: No Hx Alcohol Use: Yes (occasional) Drug/Substance Use Hx: Yes (pcp/marijuana) Substance Use Type: None Hx Substance Use Treatment: No *Physical Exam - Vital Signs Last Vital Signs Temp Pulse Resp BP Pulse Ox 97.2 F L 70 16 188/100 H 0 L 05/08/19 11:15 05/08/19 11:15 05/08/19 11:15 05/08/19 11:15 05/08/19 11:15 ED Treatment Course - LABORATORY CBC & Chemistry Diagram: 05/08/19 12:03 Medical Decision Making - Medical Decision Making 05/08/19 12:03 Vital Signs Temp Pulse Resp BP Pulse Ox 97.2 F L 70 16 188/100 H 0 L 05/08/19 11:15 05/08/19 11:15 05/08/19 11:15 05/08/19 11:15 05/08/19 11:15 DDx. alcohol intoxication, alcohol withdrawal. drug intoxication VS noted, hypertensive, no acute distress. +etoh use last night with cannibis , room and items smell of cannibis. h/o HTN, does not take meds could be related to weed check labs, lytes, UA, drug screen, unreliable, etoh level glucose ekg reassess no e/o withdrawal, no h/o seizure Patient demonstrates for exam after being found sleeping on the ground, admits to cannibis and etoh use last night, but does appear clinically sober. The patient admits to intentional heavy drinking of alcohol and denies fall or injury. All clothes were removed, all parts of the body were evaluated and there is no evidence of acute trauma. The plan is to observe patient in the ED and reassess history and physical examination. pt monitored closely in the ED, pt seen and reassessed periodically. remained comfortable, no acute events, VS remain stable. at time of discharge, AAO x3, NAD, patient denies any trauma, clinically improved, sober, clear and coherent in conversation, speech clear, gait stable, ambulatory. no acute neuro changes, nontremulous, normal mental status. no evidence of SI or HI or psychosis. Able to tolerate oral intake. Recommend cessation of alcohol use and cannibis use, or at the least avoid heavy alcohol consumption or binge drinking. Strongly recommend alcohol rehabilitation/ detox: see enclosed list of centers (you must make the calls yourself for entrance into the program). Return immediately if you develop signs of withdrawal. 05/08/19 12:50 - notified by cruise staff member pt eloped from the department with his items. prior to return of his labs/etoh and obtaining UA/drug screen. checked all areas, pt has eloped from the ED. Discharge - Discharge Information Problems reviewed: Yes Clinical Impression/Diagnosis: Alcohol use, Cannabis abuse Condition: Stable Disposition: ELOPED - Follow up/Referral Referrals: Demetri Beasley MD [Primary Care Provider] - - Patient Discharge Instructions - Post Discharge Activity
[2019-05-08 12:49] LABS: ALBUMIN 4.5 g/dl (3.4-5.0); ALK PHOS 97 U/L (45-117); ANION GAP 6 MMOL/L (8-16); BILIRUBIN,TOTAL 0.8 mg/dL (0.2-1); BLOOD UREA NITROGEN 14.8 mg/dL (7-18); CALCIUM 9.3 mg/dL (8.5-10.1); CHLORIDE 105 mmol/L (98-107); CO2 28 mmol/L (21-32); CREATININE 1.5 mg/dL (0.55-1.3); GLUCOSE,RANDOM 126 mg/dL (74-106); POTASSIUM 3.8 mmol/L (3.5-5.1); SGOT/AST 59 U/L (15-37); SGPT/ALT 45 U/L (13-61); SODIUM 139 mmol/L (136-145); TOT PROT 8.2 g/dl (6.4-8.2)
== END 2019-05-08 13:02 | disposition left against medical advice (07) ==
LOC: JER 10:59
DX: F10.10 Alcohol abuse, uncomplicated (principal); F12.10 Cannabis abuse, uncomplicated; I10 Essential (primary) hypertension; Z91.14 Patient's other noncompliance with medication regimen; Z98.84 Bariatric surgery status
CPT/HCPCS: 36415; 80053; 80307; 99284-25

== ENCOUNTER 2022-08-31 11:24 | Emergency (ER) | payer OTHER ==
[2022-08-31 13:06] VITALS: BP 168/109; PULSE 87; RESP 18; BMI 31.5
== END 2022-08-31 13:10 | disposition left against medical advice (07) ==
LOC: JER 11:24
DX: R07.9 Chest pain, unspecified (principal); R06.02 Shortness of breath
CPT/HCPCS: 82962; 99283-25

== ENCOUNTER 2023-09-09 04:10 | Day surgery (SDC) | payer OTHER ==
[2023-09-05 07:58] VITALS: BMI 29.1
[2023-09-09] MEDS ORDERED: MIDAZOLAM HCL 2 MG/2 ML SINGLE DOSE VIAL ONE (07:58)
[2023-09-09 08:43] VITALS: TEMP 99
[2023-09-09 09:12] VITALS: BP 147/85; PULSE 64; RESP 20
== END 2023-09-09 09:55 | disposition home or self-care (01) ==
LOC: JASU-ENDO 04:10
PROVIDERS: ATTEND Internal Medicine Gastroenterology
PROC: 0DBL8ZX Excision of Transverse Colon, Via Natural or Artificial Opening Endoscopic, Diagnostic (ICD-10-PCS; 2023-09-09)
PROC: 0DBN8ZX Excision of Sigmoid Colon, Via Natural or Artificial Opening Endoscopic, Diagnostic (ICD-10-PCS; principal; 2023-09-09 08:00)
DX: Z12.11 Encounter for screening for malignant neoplasm of colon (principal); D12.3 Benign neoplasm of transverse colon; K63.5 Polyp of colon; K64.8 Other hemorrhoids
CPT/HCPCS: 88305-TC